=== PATIENT | male | born 1965 | race Caucasian/White ===

== ENCOUNTER → 2019-06-27 07:50 | Outpatient (BNVA) | payer OTHER, SELFPAY | PROVIDERS: Family Provider Internal Medicine; PCP Internal Medicine; Visit Provider Urology | DX: C61 Malignant neoplasm of prostate (principal); N52.9 Male erectile dysfunction, unspecified | CPT/HCPCS: 84153 ==

== ENCOUNTER → 2019-11-07 13:39 | Outpatient (BNVA) | payer OTHER, SELFPAY | PROVIDERS: Family Provider Internal Medicine; PCP Internal Medicine; Visit Provider Dermatology | DX: D48.9 Neoplasm of uncertain behavior, unspecified (principal); L82.1 Other seborrheic keratosis; D18.01 Hemangioma of skin and subcutaneous tissue | CPT/HCPCS: 11104; 88305; 88312; 99203 ==

== ENCOUNTER → 2019-11-10 10:42 | Outpatient (BNVA) | payer OTHER, SELFPAY | PROVIDERS: Family Provider Internal Medicine; PCP Internal Medicine; Visit Provider Dermatology | DX: D48.9 Neoplasm of uncertain behavior, unspecified (principal) | CPT/HCPCS: 88305 ==

== ENCOUNTER → 2019-11-21 13:55 | Outpatient (BNVA) | payer OTHER, SELFPAY | PROVIDERS: Family Provider Internal Medicine; PCP Internal Medicine; Visit Provider Dermatology | DX: Z48.02 Encounter for removal of sutures (principal); Z79.2 Long term (current) use of antibiotics | CPT/HCPCS: 99213 ==

== ENCOUNTER → 2019-11-24 08:19 | Outpatient (BNVA) | payer OTHER, SELFPAY | PROVIDERS: Family Provider Internal Medicine; PCP Internal Medicine; Visit Provider Dermatology | DX: L72.3 Sebaceous cyst (principal); D48.9 Neoplasm of uncertain behavior, unspecified | CPT/HCPCS: 11402; 12032; 88304; 88305 ==

== ENCOUNTER → 2019-12-08 08:58 | Outpatient (BNVA) | payer OTHER, SELFPAY | PROVIDERS: Family Provider Internal Medicine; PCP Internal Medicine; Visit Provider Dermatology | DX: Z48.02 Encounter for removal of sutures (principal) | CPT/HCPCS: 99203; 99212 ==

== ENCOUNTER → 2019-12-28 07:51 | Outpatient (BNVA) | payer OTHER, SELFPAY | PROVIDERS: Family Provider Internal Medicine; PCP Internal Medicine; Visit Provider Urology | DX: C61 Malignant neoplasm of prostate (principal); R79.89 Other specified abnormal findings of blood chemistry | CPT/HCPCS: 81001; 84153 ==

== ENCOUNTER → 2020-01-02 11:23 | Outpatient (BNVA) | payer OTHER, SELFPAY | PROVIDERS: Family Provider Internal Medicine; PCP Internal Medicine; Visit Provider Specialist | DX: Z96.651 Presence of right artificial knee joint (principal) | CPT/HCPCS: 73560; 73565 ==

== ENCOUNTER → 2020-01-04 10:42 | Outpatient (BNVA) | payer OTHER, SELFPAY | PROVIDERS: Family Provider Internal Medicine; PCP Internal Medicine; Visit Provider Nurse Practitioner Family | DX: Z11.59 Encounter for screening for other viral diseases (principal); J06.9 Acute upper respiratory infection, unspecified | CPT/HCPCS: 87635 ==

== ENCOUNTER → 2020-06-26 08:08 | Outpatient (BNVA) | payer OTHER, SELFPAY | PROVIDERS: Family Provider Internal Medicine; PCP Internal Medicine; Visit Provider Urology | DX: C61 Malignant neoplasm of prostate (principal); N52.1 Erectile dysfunction due to diseases classified elsewhere | CPT/HCPCS: 81003; 84153; 84403 ==

== ENCOUNTER 2020-07-12 12:43 | Outpatient (CLI) | payer OTHER, SELFPAY ==
--- NOTE | 2020-07-12 12:45 | USCV_ITS ---
Pancho Melendez Age: 55 Gender: M : 1965 Exam Date: 07/12/2020 13:29 Ordering Phys: Yonaatn Hernandes MD ([email or web address]) Technologist: Guera Hart [place] [facility] [place]: HISTORY: Lower extremity pain. PROCEDURES: Bilateral duplex Venous Insufficiency study of the Deep and Superficial systems was carried out according to normal protocol with the patient in supine positon for deep system and dependent position for the superficial system. FINDINGS: All deep veins demonstrated compressibility without evidence of intraluminal thrombus or increased echogenicity. Spectral analysis of Doppler signals demonstrates normal response to compression maneuvers indicating patency without obstruction. Reflux determinations were made with the patient in the dependent position, the weight being on the contralateral leg. Vein measurements and reflux times are listed below were applicable. THE PATIENT HAS SIGNIFICANT REFLUX ON BOTH SIDES WORSE ON LT . PLEASE HAVE DR HERNANDES REVIEW THE EXAM WITH GUERA HART THIS PROCEEDURE WILL BE COMPLICATED BY VERY SUPERFICAL VEINS. Significant venous reflux was noted at the left saphenofemoral junction CONCLUSIONS 1. Significant venous reflux of greater than 500 ms were noted at the left saphenofemoral junction and the entire greater saphenous vein segments except the mid greater saphenous vein segment. The proximal and mid greater saphenous vein segments were found to be greater than 1 cm deep from the surface. The rest of the venous segments were found to be less than 1 cm from the surface. The venous segments were ranging anywhere from .41 to 0.98 cm in diameter. 2. Significant venous reflux of greater than 500 ms was noted at the below-knee greater saphenous vein segment on the right side. The venous segment was 0. 3 9 cm in diameter at a depth of less than 1 cm from the surface. 3. No deep vein thrombosis are noted. 4. No deep venous reflux on either side. Dr Sarthak Calderon MD [facility] (Electronically Signed) Final Date: 13 July 2020 19:17 S
== END 2020-07-12 12:44 | disposition home or self-care (01) ==
LOC: US 12:47
PROVIDERS: PCP Internal Medicine; Visit Provider Internal Medicine Cardiovascular Disease
DX: I87.2 Venous insufficiency (chronic) (peripheral) (principal); M79.604 Pain in right leg; M79.605 Pain in left leg
CPT/HCPCS: 93970

== ENCOUNTER → 2020-12-27 08:15 | Outpatient (BNVA) | payer OTHER, SELFPAY | PROVIDERS: PCP Internal Medicine; Visit Provider Urology | DX: N52.1 Erectile dysfunction due to diseases classified elsewhere (principal); C61 Malignant neoplasm of prostate; Z12.5 Encounter for screening for malignant neoplasm of prostate | CPT/HCPCS: 81003; 84403; G0103 ==

== ENCOUNTER → 2021-01-02 09:28 | Outpatient (BNVA) | payer OTHER, SELFPAY | PROVIDERS: PCP Internal Medicine; Visit Provider Specialist | DX: Z96.651 Presence of right artificial knee joint (principal); M25.561 Pain in right knee | CPT/HCPCS: 73560; 73565 ==

== ENCOUNTER → 2021-04-22 12:05 | Outpatient (BNVA) | payer OTHER, SELFPAY | PROVIDERS: PCP Internal Medicine; Visit Provider Family Medicine | DX: Z20.828 Contact with and (suspected) exposure to other viral communicable diseases (principal) | CPT/HCPCS: 87426; 87635 ==

== ENCOUNTER → 2021-06-27 08:24 | Outpatient (BNVA) | payer OTHER, SELFPAY | PROVIDERS: PCP Internal Medicine; Visit Provider Urology | DX: C61 Malignant neoplasm of prostate (principal); R79.89 Other specified abnormal findings of blood chemistry; N52.1 Erectile dysfunction due to diseases classified elsewhere | CPT/HCPCS: 81003; 84153; 84403 ==

== ENCOUNTER 2021-10-17 08:00 | Outpatient (CLI) | payer OTHER, SELFPAY | END 2021-10-17 08:01 | disposition home or self-care (01) | PROVIDERS: PCP Internal Medicine; Visit Provider Urology | DX: C61 Malignant neoplasm of prostate (principal); R79.89 Other specified abnormal findings of blood chemistry | CPT/HCPCS: 84153; 84403 ==

== ENCOUNTER → 2021-10-18 07:59 | Outpatient (BNVA) | payer OTHER, SELFPAY | PROVIDERS: PCP Internal Medicine; Visit Provider Urology | DX: C61 Malignant neoplasm of prostate (principal); N52.1 Erectile dysfunction due to diseases classified elsewhere; R79.89 Other specified abnormal findings of blood chemistry | CPT/HCPCS: 81003 ==

== ENCOUNTER 2022-01-23 07:04 | Inpatient (IN) | payer BC, SELFPAY ==
[2022-01-23] VITALS (8 sets, daily range): BP systolic 97–158; BP diastolic 53–91; PULSE 90–122; RESP 14–20; TEMP 36.5–38.9; O2SAT 95–98; BMI 36.8
--- NOTE | 2022-01-23 07:09 | ECG_ITS ---
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 Measurements Intervals [place] Rate: 100 P: 51 [place]: 128 QRS: 5 QRSD: 102 T: 92 QT: 332 QTc: 428 Interpretive Statements SINUS TACHYCARDIA NONSPECIFIC T-WAVE ABNORMALITY Compared to ECG 12/18/2018 04:54:54 Sinus rhythm no longer present T-wave abnormality still present Electronically Signed On 01-23-2022 12:52:14 CDT by Alyson Hines M.D. [id number]
--- NOTE | 2022-01-23 07:09 | XR_ITS ---
WS: [id number] XR chest 1V portable [id number] REASON FOR EXAM: dyspnea/cough FINDINGS: Chest is unchanged compared to 11/19/2018. Mild tortuosity the thoracic aorta normal heart size. Calcified granulomatous disease in both hemithoraces. No acute pulmonary parenchymal or pleural abnormality. Moderate degenerative spondylosis in the mid and lower thoracic spine. XR/XR chest 1V portable [id number] IMPRESSION: No acute chest abnormality.
[2022-01-23 07:38] LABS: Basophils # 0.1 10^3/uL (0.0-0.1); Basophils % 0.6 %; Eosinophils # 0.1 10^3/uL (0.0-0.8); Eosinophils % 0.5 %; Hematocrit 45.4 % (42.0-52.0); Hemoglobin 15.9 g/dL (11.7-16.6); Lymphocytes # 0.6 10^3/uL (0.8-4.8); Lymphocytes % 4.2 %; Mean Corpuscular Hemoglobin 33.8 pg (28.0-34.0); Mean Corpuscular Volume 96.4 fl (80-94); Mean Platelet Volume 9.7 fL (7.4-10.4); Monocytes # 1.1 10^3/uL (0.2-0.9); Monocytes % 7.6 %; Neutrophils # 12.87 10^3/uL (1.8-7.7); Neutrophils % 86.7 %; Nucleated Red Blood Cells % 0 %; Platelet Count 183 10^3/cmm (130-400); Red Blood Count 4.71 10^6/uL (4.1-5.3); Red Cell Distribution Width 12.5 % (12.1-15.1); White Blood Count 14.9 10^3/uL (4.0-10.0)
[2022-01-23 07:52] LABS: Alanine Aminotransferase 26 U/L (0-41); Albumin Level 4.3 g/dL (3.5-5.2); Alkaline Phosphatase 76 U/L (40-130); Anion Gap 19.3 (5-19); Aspartate Amino Transferase 22 U/L (0-40); Blood Urea Nitrogen 23 mg/dL (6-20); Calcium 9.5 mg/dL (8.5-10.5); Carbon Dioxide 25 mmol/L (22-29); Chloride 94 mmol/L (98-107); Globulin 2.5 g/dL (1.3-4.6); Glucose 352 mg/dL (65-115); Osmolality Calculated 296 mOsm/kg (285-295); Potassium 4.3 mmol/L (3.5-5.1); Sodium 134 mmol/L (136-145); Total Bilirubin 2.6 mg/dL (0.15-1.2); Total Protein 6.8 g/dL (6.6-8.7)
--- NOTE | 2022-01-23 07:58 | ED_ITS ---
HPI - Fever General: Chief Complaint: Fever Stated Complaint: Fever Chills Time Seen by Provider: 01/23/22 07:06 Source: patient Mode of arrival: ambulatory History of Present Illness: 56-year-old male presents to the emergency room complaining of fever sweats chills generally not feeling well. Symptoms began overnight. 2 days ago he had a prostate biopsy because of a nodule there evaluating for possible cancer. He denies any hematuria denies any dysuria urgency or frequency just generally has not felt well has had some low-grade fever subjectively at home. He denies cough or shortness of breath no significant abdominal pain or chest pain. MD elicited complaint: fever and weakness Onset (ago): day(s) Exacerbating factors: nothing Relieving factors: nothing Associated symptoms: Reports chills, dysuria and myalgias; Deny abdominal pain, flank pain, chest pain, confusion, cough, diarrhea, extremity pain, headache(s), nasal congestion, nausea, night sweats, rash, rhinorrhea, short of breath, sinus pain, stiffness, sore throat, vomiting or weight loss Treatments prior to arrival fever: acetaminophen and ibuprofen Review of Systems Const: Reports: fever(s), chills and malaise; Denies: night sweats ENMT: Denies: throat pain, nasal congestion or sinus pain Card: Denies: chest pain Resp: Denies: dyspnea, productive cough or non-productive cough GI: Denies: abdominal pain, nausea, vomiting or diarrhea : Reports: difficulty urinating, dysuria and urinary hesitancy; Denies: flank pain, urinary frequency or urinary urgency Musc: Reports: back pain; Denies: neck pain or extremity pain Skin/Breast: Denies: rash or pruritus Neuro: Denies: headache(s) or confusion PFSH ED PFSH: Medical History CAD (coronary artery disease) Depression Essential (primary) hypertension Hyperlipidemia, unspecified Hypertension Hypogonadism Hypothyroidism Male erectile dysfunction, unspecified Pilonidal cyst Prostate cancer Rotator cuff arthropathy Type 2 diabetes mellitus Varicose 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 Surgical History H/O heart artery stent H/O prostate biopsy History of total right knee replacement Knee joint replacement by other means S/P nasal surgery Family History Mother , at age 73 Emphysema lung COPD (chronic obstructive pulmonary disease) Father , at age 59 Congestive heart failure Diabetes Social History Smoking and tobacco status: never smoked Alcohol intake: current Alcohol intake frequency: holidays/special occasions only Adopted: No Caregiver/support person: No Lives independently: No Household members: spouse Marital status: Current occupational status: employed History of recent travel: Yes Current gender identity: Male Physical Exam Const: GENERAL APPEARANCE: cooperative and comfortable ORIENTATION/CONSCIOUSNESS: Yes awake, Yes oriented to person, Yes oriented to place and Yes oriented to time HENMT: COMMON NORMALS: normocephalic, atraumatic and hearing grossly normal bilaterally HEAD & SCALP: normocephalic and atraumatic Resp: COMMON NORMALS: normal respiratory effort, No retractions, No use of accessory muscles and clear to auscultation bilaterally AUSCULTATION: clear to auscultation bilaterally Cardio: COMMON NORMALS: regular rate, regular rhythm and No murmurs present (Cardio) RATE: regular rate RHYTHM: regular rhythm GI: COMMON NORMALS: Soft to palpation and No hepatosplenomegaly present AU SCULTATION: Yes normoactive bowel sounds PALPATION: Yes Soft to palpation, No Tenderness to palpation present (GI), No Guarding due to palpation present (GI) and Yes No hepatosplenomegaly present Extremity: COMMON NORMALS: normal to inspection, capillary refill normal, no clubbing, cyanosis or edema, no calf tenderness and no pedal edema Neuro: SENSORIUM/ORIENTATION: Yes oriented to person, Yes oriented to place and Yes oriented to time Skin: COMMON NORMALS: no rashes or lesions noted GENERAL SKIN EXAM: no rashes or lesions noted Course Vital Signs: Vital signs: Vital Signs Temperature 97.3 F L 01/27/22 12:49 Pulse Rate 79 01/27/22 12:49 Respiratory Rate 20 H 01/27/22 12:49 Blood Pressure 126/80 01/27/22 12:49 Pulse Oximetry 93 01/27/22 12:49 Oxygen Delivery Me thod 01/27/22 11:09 Oxygen Flow Rate 3 01/24/22 20:00 MDM - Fever Medical Decision Making Febrile acutely illWhite count of 15,000 with left shift. Discussed with hospitalist and with urology blood cultures done initiate antibiotics. Medical Records I reviewed the patient's medical records. Lab Data I reviewed the patient's lab results. : 01/27/22 04:24 01/27/22 04:24 Radiology Impressions Chest X-Ray 01/23/22 07:09 IMPRESSION: No acute chest abnormality. Abdomen/Pelvis CT 01/23/22 08:06 IMPRESSION: 1. Mild prostate enlargement with heterogeneous enhancement and slight induration about the seminal vesicles. Some this may be due to recent biopsy. Recommend correlation for prostatitis. 2. No large hematoma or free fluid in the pelvis. 3. No obstructing renal or ureteral calculi. 4. No other acute findings. Laboratory Results WBC 9.9 10^3/uL (4.0-10.0) 01/24/22 04:36 RBC 4.13 10^6/uL (4.1-5.3) 01/24/22 04:36 Hgb 13.9 g/dL (11.7-16.6) 01/24/22 04:36 Hct 40.2 % (42.0-52.0) L 01/24/22 04:36 MCV 97.3 fl (80-94) H 01/24/22 04:36 MCH 33.7 pg (28.0-34.0) 01/24/22 04:36 MCHC 34.6 g/dL (30.0-36.0) 01/24/22 04:36 RDW 12.7 % (12.1-15.1) 01/24/22 04:36 Plt Count 129 10^3/cmm (130-400) L 01/24/22 04:36 MPV 9.6 fL (7.4-10.4) 01/24/22 04:36 Neut % (Auto) 83.6 % 01/24/22 04:36 Lymph % (Auto) 7.1 % 01/24/22 04:36 Gates % (Auto) 7.5 % 01/24/22 04:36 Eos % (Auto) 0.3 % 01/24/22 04:36 Baso % (Auto) 0.6 % 01/24/22 04:36 Neut # (Auto) 8.26 10^3/uL (1.8-7.7) H 01/24/22 04:36 Lymph # (Auto) 0.7 10^3/uL (0.8-4.8) L 01/24/22 04:36 Gates # (Auto) 0.7 10^3/uL (0.2-0.9) 01/24/22 04:36 Eos # (Auto) 0.0 10^3/uL (0.0-0.8) 01/24/22 04:36 Baso # (Auto) 0.1 10^3/uL (0.0-0.1) 01/24/22 04:36 Nucleated RBC % (auto) 0 % 01/24/22 04:36 Nucleated RBCs # 0.0 /100WBC 01/24/22 04:36 Sodium 134 mmol/L (136-145) L 01/24/22 04:36 Potassium 3.9 mmol/L (3.5-5.1) 01/24/22 04:36 Chloride 97 mmol/L (98-107) L 01/24/22 04:36 Carbon Dioxide 26 mmol/L (22-29) 01/24/22 04:36 Anion Gap 14.9 (5-19) 01/24/22 04:36 BUN 16 mg/dL (6-20) 01/24/22 04:36 Creatinine 0.9 mg/dL (0.7-1.2) 01/24/22 04:36 GFR Calculation 87.0 mL/min (90-130) L 01/24/22 04:36 Glucose 144 mg/dL (65-115) H 01/24/22 04:36 POC Glucose 139 mg/dL (70-110) H 01/24/22 06:03 Calculated Osmolality 282 mOsm/kg (285-295) L 01/24/22 04:36 Lactic Acid 3.4 mmol/L (0.5-2.2) H 01/23/22 07:20 Lactic Acid (Sepsis) 1.7 mmol/L (0.5-2.2) 01/23/22 10:41 Calcium 8.5 mg/dL (8.5-10.5) 01/24/22 04:36 Total Bilirubin 1.7 mg/dL (0.15-1.2) H 01/24/22 04:36 AST 28 U/L (0-40) 01/24/22 04:36 ALT 21 U/L (0-41) 01/24/22 04:36 Alkaline Phosphatase 37 U/L (40-130) L 01/24/22 04:36 Troponin T Gen 5 ng/L 25 ng/L (0-15) H 01/23/22 12:33 Total Protein 5.8 g/dL (6.6-8.7) L 01/24/22 04:36 Albumin 3.4 g/dL (3.5-5.2) L 01/24/22 04:36 Globulin 2.4 g/dL (1.3-4.6) 01/24/22 04:36 Urine Color Yellow (Yellow) 01/23/22 09:20 Urine Appearance Clear (CLEAR) 01/23/22 09:20 Urine pH 5 (5-7) 01/23/22 09:20 Ur Specific [place] 1.005 (1.005-1.030) 01/23/22 09:20 Urine Protein Trace (Negative) 01/23/22 09:20 Urine Glucose (UA) 2+ (Normal) H 01/23/22 09:20 Urine Ketones Negative (Negative) 01/23/22 09:20 Urine Blood 3+ (Negative) H 01/23/22 09:20 Urine Nitrate Negative (Negative) 01/23/22 09:20 Urine Bilirubin Neg (Negative) 01/23/22 09:20 Urine Urobilinogen Neg mg/dL (Negative) 01/23/22 09:20 Ur Leukocyte Esterase Negative (Negative) 01/23/22 09:20 Urine RBC 25-40 /hpf (0-2) H 01/23/22 09:20 Urine WBC None /hpf (0-5) 01/23/22 09:20 Ur Squamous Epith Cells 0-4 /hpf (0-5) H 01/23/22 09:20 Amorphous Sediment Not Reportable 01/23/22 09:20 Urine Bacteria None /hpf (NONE) 01/23/22 09:20 Urine Mucus 1+ /hpf 01/23/22 09:20 Tobramycin Peak 2.6 ug/mL (6-10) L 01/23/22 22:15 Coronavirus 229E (PCR) Not detected (NOT DETECT) 01/23/22 11:50 SARS-CoV-2 (PCR) Not detected (NOT DETECT) 01/23/22 11:50 Discharge Plan Discharge Patient Disposition: Admitted As Inpatient Admit Provider: Rashid Neff Clinical Impression: Acute prostatitis, CAD (coronary artery disease), Type 2 diabetes mellitus, Total bilirubin, elevated Condition: Stable Discharge Diet: Cardiac and Diabetic Discharge Activity: Increase activity as tolerated Coding Level of Care Code ED Health And Wellness Coordinator for Monet Jimenez
--- NOTE | 2022-01-23 08:06 | CT_ITS ---
WS: [id number] CT ABDOMEN PELVIS TECHNIQUE: Contrast-enhanced CT of the abdomen and pelvis with coronal and sagittal reformatted image s. CLINICAL INFORMATION: abd pain COMPARISON: None. DLP: 1228.[address] scans at [facility] use at least one of these dose optimization techniques: automated e xposure control; mA and/or kV adjustment per patient size (includes targeted exams where dose is matc hed to clinical indication); or iterative reconstruction. FINDINGS: Enlarged heterogeneous prostate. Heterogeneous prostate enhancement. Prostate measures 4.8 x 3.8 cm. History of recent prostate biopsy. No evidence of large hematoma or free fluid in the pelvis. Slight induration about the seminal vesicles. Normal sigmoid colon. No evidence of high-grade small or large bowel obstruction. Mild hepatomegaly. Diffuse fatty infiltration liver. Normal gallbladder. Tiny esophageal hiatal herni a. Normal spleen. A few tiny noncalcified nodules in the RIGHT middle lobe and lung bases measuring 3 to 4 mm. Adrenal glands are normal. Normal renal parenchymal enhancement. RIGHT renal cyst. No obstr ucting renal or ureteral calculi. Nonobstructing calyceal calculi bilaterally. No hydronephrosis. Fatty atrophy of the pancreas. Normal caliber abdominal aorta. Celiac and SMA are patent. Fat-contain ing umbilical hernia. Slightly anterolisthesis L4 on L5. Disc space narrowing worse L5-S1. CT/CT abdomen pelvis w con* [id number] IMPRESSION: 1. Mild prostate enlargement with heterogeneous enhancement and slight indurat ion about the seminal vesicles. Some this may be due to recent biopsy. Recommen d correlation for prostatitis. 2. No large hematoma or free fluid in the pelvis. 3. No obstructing renal or ureteral calculi. 4. No other acute findings.
[2022-01-23 08:31] LABS: Lactic Sepsis W/Reflex 3.4 mmol/L (0.5-2.2)
[2022-01-23] MEDS: iohexol 350 mg/mL 100 mL Btl IV (08:32)
[2022-01-23 09:51] LABS: Blood Urine 3+ (Negative); Glucose Urine UA 2+ (Normal); Ketones Urine Negative (Negative); Nitrate Urine Negative (Negative); Protein Urine Trace (Negative); Specific Gravity, Urine 1.005 (1.005-1.030); Urine Appearance Clear (CLEAR); Urine Color Yellow (Yellow); pH Urine 5 (5-7)
[2022-01-23 09:52] LABS: Add Urine Microscopic? YES; Bilirubin Urine Neg (Negative); Leukocyte Esterase Urine Negative (Negative); Urobilinogen Urine Neg (Negative)
[2022-01-23 09:58] LABS: Reflex Lactate Order REFLEX LACTIC ORDERD
[2022-01-23 09:59] LABS: Mucus Urine 1+ /hpf; RBC Urine 25-40 /hpf (0-2); Squamous Epithelial Cell Urine 0-4 /hpf (0-5)
[2022-01-23 11:04] LABS: Lactic Acid level (Lactate) 1.7 mmol/L (0.5-2.2)
--- NOTE | 2022-01-23 11:22 | PM.HP ---
Providers/Chief Complaint Admitting Physician: Rashid Neff MD Primary Care Provider: Linda Prakash MD Chief Complaint: Fever Chills History of Present Illness Pancho Melendez is a 56 year old male who presents with complaints of chills, low temperature, diffuse sweating, and some shortness of breath starting around 2 AM this morning. He reports he feels little bit better now after fluids. He recently had a prostate biopsy, on Thursday. This was done in [place], and he received some preoperative antibiotics by mouth as well as some IV. He reports since the surgery he has had some difficulty controlling his urine, but no particular pain. He has had no nausea, vomiting or diarrhea. He has had no ill contacts. He denies any chest discomfort. Shortness of breath he had this morning associated with his chills has now dissipated. Review of Systems General: Reports: 10 or more systems reviewed and unremarkable except in HPI and below Const: Reports: chills, fatigue, malaise and diaphoresis; Denies: fever(s) ENMT: Denies: throat pain Card: Denies: chest pain or palpitations Resp: Reports: dyspnea GI: Denies: abdominal pain, nausea or vomiting : Reports: urinary frequency, urinary dribbling and urinary incontinence Musc: Denies: neck pain or back pain Skin/Breast: Denies: rash or pruritus Neuro: Denies: headache(s) Psych: Denies: anxiety or depression Endo: Denies: polyuria Oswaldo/Lymph: Denies: easy bruising All/Imm: Denies: urticaria Medications/Allergies Home Medications Medication Instructions Recorded Confirmed Last Taken Type duloxetine 30 mg capsule,delayed 30 mg PO DAILY 04/26/19 12/09/21 Unknown History release (Cymbalta) tramadol 50 mg tablet 50 mg PO Q6H PRN 04/26/19 12/09/21 Unknown History trazodone 100 mg tablet 100 mg PO DAILY 04/26/19 12/09/21 Unknown History aspirin 81 mg chewable tablet 81 mg PO DAILY 06/27/19 12/09/21 Unknown History levothyroxine 50 mcg capsule 50 mcg PO DAILY 06/27/19 12/09/21 Unknown History atorvastatin 20 mg tablet 20 mg PO DAILY 12/27/20 12/09/21 Unknown History cholecalciferol (vitamin D3) 250 250 mcg PO DAILY 12/27/20 12/09/21 Unknown History mcg (10,000 unit) capsule compounded tri mix PO for ED 12/27/20 12/09/21 Unknown History diclofenac potassium 50 mg tablet 50 mg PO DAILY 12/27/20 12/09/21 Unknown History semaglutide 0.25 mg or 0.5 mg (2 mg SUBCUT .0.5 units PRN weekly 06/27/21 12/09/21 Unknown History mg/1.5 mL) subcutaneous pen injector (Ozempic) clopidogrel 75 mg tablet (Plavix) 75 mg PO DAILY #90 tabs 07/02/21 12/09/21 Unknown Rx carvedilol 12.5 mg tablet 12.5 mg PO BID #180 tabs 08/05/21 12/09/21 Unknown Rx testosterone cypionate 200 mg/mL 200 mg IM .EVERY OTHER WEEK #10 mL 08/08/21 12/09/21 Unknown Rx intramuscular oil hydrochlorothiazide 25 mg tablet 12.5 mg PO BID #90 tabs 08/13/21 12/09/21 Unknown Rx losartan 100 mg tablet 150 mg PO DIRECTED #135 tabs 11/19/21 12/09/21 Unknown Rx Allergies Allergy/AdvReac Type Severity Reaction Status Date / Time amoxicillin Allergy UNKNOWN Verified 12/09/21 15:12 penicillin V [From Pen-Vee K] Allergy UNKNOWN Verified 12/09/21 15:12 PFSH Acute PFSH: Medical History (Updated 01/23/22 @ 12:19 by Rashid Neff MD) CAD (coronary artery disease) Depression Essential (primary) hypertension Hyperlipidemia, unspecified Hypertension Hypogonadism Hypothyroidism Male erectile dysfunction, unspecified Pilonidal cyst Prostate cancer Rotator cuff arthropathy Type 2 diabetes mellitus Varicose 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 Surgical History H/O heart artery stent H/O prostate biopsy History of total right knee replacement Knee joint replacement by other means S/P nasal surgery Family History Mother , at age 73 Emphysema lung COPD (chronic obstructive pulmonary disease) Father , at age 59 Congestive heart failure Diabetes Social History Smoking and tobacco status: never smoked Alcohol intake: current Alcohol intake frequency: holidays/special occasions only Adopted: No Caregiver/support person: No Lives independently: No Household members: spouse Marital status: Current occupational status: employed History of recent travel: Yes Current gender identity: Male Vitals/I&O/Wt Last Vital Signs Temp 97.7 F 01/23/22 07:10 Pulse 90 01/23/22 09:38 Resp 14 01/23/22 09:38 BP 125/75 01/23/22 09:38 Pulse Ox 95 01/23/22 09:38 O2 Del Method 01/23/22 09:38 Weight last 48 hrs Weight 123.377 kg Physical Exam Narrative: General exam, some shaking chills. Otherwise no distress. Denies any shortness of breath or chest discomfort. Heart rate now 90, after fluids and saturation is 95% on room air HEENT: Atraumatic and normocephalic. Pupils equally round. Oropharynx clear. Neck is supple no lymphadenopathy or thyromegaly Cardiovascular regular rate and rhythm without murmur, no S3 or S4 Lungs clear no wheezing or crackles Abdomen is soft, positive bowel sounds. No obvious tenderness exam is deferred Extremities no cyanosis clubbing or edema, cap refill brisk. Skin no rash Neuro no obvious focal deficits. Data : 01/23/22 07:20 01/23/22 07:20 Other Labs: Blood cultures were drawn EKG demonstrates sinus tachycardia initially with a heart rate of 100, normal axis, no acute changes. LFTs normal with exception of total bilirubin of 2.6. Lactic acid 3.4 Calcium 9.5 Urinalysis with 25-40 reds, 0-[address] demonstrates question prostatitis. No hematoma or free fluid, or urinary calculi. No other acute findings. Chest x-ray no infiltrate Micro: Microbiology 01/23/22 07:26 Blood Culture - Preliminary Blood SPECIMEN COLLECTED 01/23/22 07:20 Blood Culture - Preliminary Blood SPECIMEN COLLECTED A&P Assessment and plan (1) Acute prostatitis: Patient presents with concerns of acute prostatitis on CT scan, history of chills, diaphoresis, elevated white blood cell count, borderline low blood pressure on admission that has resolved with fluids. Discussed briefly with urology. For now, observation Blood cultures, urine cultures Initiate tobramycin. This was chosen as he had Levaquin preoperatively 2 days ago prior to biopsy. Visited briefly with urology regarding this. (2) Leukocytosis: Secondary to above. Does not qualify for sepsis currently. No evidence of endorgan dysfunction. Certainly at risk. Lactic acid slightly high. (3) Elevated bilirubin: Likely secondary to infection. Recheck tomorrow (4) Type 2 diabetes mellitus: Moderate sliding scale insulin (5) CAD (coronary artery disease): Continue home medications Plan Diaphoresis, dyspnea noted this morning. Check troponin, EKG for follow-up as initial troponin I had done on blood in lab was elevated. Initial EKG without any definitive ischemic changes. Will follow-up appropriately. 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
[2022-01-23 11:33] LABS: Troponin T (5th) Once 34 ng/L (0-15)
[2022-01-23] MEDS: levofloxacin-dextrose 5 % 750 MG/150 ML PREMIX 100 MG IV (11:51)
--- NOTE | 2022-01-23 12:21 | ECG_ITS ---
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 Measurements Intervals [place] Rate: 118 P: 33 HI: 117 QRS: -14 QRSD: 102 T: 74 QT: 302 QTc: 424 Interpretive Statements SINUS TACHYCARDIA WITH SHORT HI INTERVAL NONSPECIFIC T-WAVE ABNORMALITY Compared to ECG 01/23/2022 08:08:31 Short HI interval now present T-wave abnormality still present Electronically Signed On 01-23-2022 17:08:07 CDT by Alyson Hines M.D. [id number]
[2022-01-23 13:06] LABS: Troponin T (5th) Once 25 ng/L (0-15)
[2022-01-23] MEDS: ondansetron 2 mg/ML SDV 2 mL 4 MG IVP (13:32)
[2022-01-23 14:36] LABS: Add Urine Culture? No
[2022-01-23] MEDS: sodium chloride 0.9% 1,000 ML 100 ML IV (15:09)
[2022-01-23] MEDS: enoxaparin 40 mg/0.4 mL Syringe SUBCUT (15:11)
[2022-01-23] MEDS: acetaminophen 325 mg Tablet 650 MG PO ×3 (15:41→23:55)
[2022-01-23 16:49] LABS: Glucose Point of Care 160 mg/dL (70-110)
[2022-01-23] MEDS: vancomycin 1,500 MG/300 ML PIGGYBACK 200 MG IV (16:55)
[2022-01-23] MEDS: insulin lispro 100 unit/1 mL SUBCUT ×2 (19:07→20:35)
[2022-01-23 20:03] LABS: Adenovirus Not Detected (NOT DETECT); Chlamydia Pneumoniae Not Detected (NOT DETECT); Coronavirus 229E,HKU1,NL63,OC4 Not Detected (NOT DETECT); Human Metapneumovirus Not Detected (NOT DETECT); Human Rhinovirus/Enterovirus Not Detected (NOT DETECT); Influenza A Not Detected (NOT DETECT); Influenza A H1 Not Detected (NOT DETECT); Influenza A H1-2009 Not Detected (NOT DETECT); Influenza A H3 Not Detected (NOT DETECT); Influenza B Not Detected (NOT DETECT); Mycoplasma Pneumoniae Not Detected (NOT DETECT); Parainfluenza Virus Type 1 Not Detected (NOT DETECT); Parainfluenza Virus Type 2 Not Detected (NOT DETECT); Parainfluenza Virus Type 3 Not Detected (NOT DETECT); Parainfluenza Virus Type 4 Not Detected (NOT DETECT); Respiratory Syncytial Virus A Not Detected (NOT DETECT); Respiratory Syncytial Virus B Not Detected (NOT DETECT); SARS-COV-2 Not Detected (NOT DETECT)
[2022-01-23 20:24] LABS: Glucose Point of Care 193 mg/dL (70-110)
[2022-01-23] MEDS: atorvastatin 40 mg Tablet 20 MG PO (20:35)
[2022-01-23] MEDS: carvedilol 6.25 mg Tablet PO (20:36)
[2022-01-23 22:44] LABS: Tobramycin Peak 2.6 ug/mL (6-10)
[2022-01-24] VITALS (10 sets, daily range): BP systolic 97–164; BP diastolic 57–103; PULSE 91–208; RESP 14–25; TEMP 36.7–39.5; O2SAT 86–95
[2022-01-24] MEDS: sodium chloride 0.9% 1,000 ML 100 ML IV
[2022-01-24 00:27] LABS: Glucose Point of Care 151 mg/dL (70-110)
[2022-01-24] MEDS: vancomycin 1,500 MG/300 ML PIGGYBACK 200 MG IV ×2 (02:57→15:25)
[2022-01-24 04:59] LABS: Basophils # 0.1 10^3/uL (0.0-0.1); Basophils % 0.6 %; Eosinophils % 0.3 %; Hematocrit 40.2 % (42.0-52.0); Hemoglobin 13.9 g/dL (11.7-16.6); Lymphocytes # 0.7 10^3/uL (0.8-4.8); Lymphocytes % 7.1 %; Mean Corpuscular HGB Conc 34.6 g/dL (30.0-36.0); Mean Corpuscular Hemoglobin 33.7 pg (28.0-34.0); Mean Corpuscular Volume 97.3 fl (80-94); Mean Platelet Volume 9.6 fL (7.4-10.4); Monocytes # 0.7 10^3/uL (0.2-0.9); Monocytes % 7.5 %; Neutrophils # 8.26 10^3/uL (1.8-7.7); Neutrophils % 83.6 %; Nucleated Red Blood Cells % 0 %; Platelet Count 129 10^3/cmm (130-400); Red Blood Count 4.13 10^6/uL (4.1-5.3); Red Cell Distribution Width 12.7 % (12.1-15.1); White Blood Count 9.9 10^3/uL (4.0-10.0)
[2022-01-24 05:12] LABS: Alanine Aminotransferase 21 U/L (0-41); Albumin Level 3.4 g/dL (3.5-5.2); Alkaline Phosphatase 37 U/L (40-130); Anion Gap 14.9 (5-19); Aspartate Amino Transferase 28 U/L (0-40); Blood Urea Nitrogen 16 mg/dL (6-20); Calcium 8.5 mg/dL (8.5-10.5); Carbon Dioxide 26 mmol/L (22-29); Chloride 97 mmol/L (98-107); Globulin 2.4 g/dL (1.3-4.6); Glucose 144 mg/dL (65-115); Osmolality Calculated 282 mOsm/kg (285-295); Potassium 3.9 mmol/L (3.5-5.1); Sodium 134 mmol/L (136-145); Total Bilirubin 1.7 mg/dL (0.15-1.2); Total Protein 5.8 g/dL (6.6-8.7)
[2022-01-24 06:20] LABS: Glucose Point of Care 139 mg/dL (70-110)
--- NOTE | 2022-01-24 08:24 | PM.PN ---
Subjective Subjective: Had a difficult night, but feeling better this morning. Had to be put on a little bit of oxygen, and his CPAP. Temperature went up to 103 and he had significant chills. He feels much better this morning. Medications: Reviewed: Yes Vitals/I&O/Wt Last Vital Signs Temp 98.0 F 01/24/22 04:00 Pulse 100 01/24/22 08:00 Resp 18 01/24/22 04:00 BP 104/70 01/24/22 04:00 Pulse Ox 92 01/24/22 08:00 O2 Del Method 01/24/22 08:00 O2 Flow Rate 3 01/24/22 08:00 01/23/22 01/24/22 01/24/22 22:59 06:59 14:59 Intake Total 4506.31 / 4506.31 3185 / 7691.31 Balance 4506.31 / 4506.31 3185 / 7691.31 Weight last 48 hrs Weight 123.377 kg Physical Exam Narrative: General exam, no distress currently Neck is supple no lymphadenopathy or thyromegaly Cardiovascular regular rate and rhythm without murmur, no S3 or S4 Lungs clear no wheezing or crackles Abdomen is soft, positive bowel sounds. No obvious tenderness exam is deferred Extremities no cyanosis clubbing or edema, cap refill brisk. Skin no rash Data : 01/24/22 04:36 01/24/22 04:36 Micro: Microbiology 01/23/22 07:26 Blood Culture - Preliminary Blood NEGATIVE TO DATE 01/23/22 07:20 Blood Culture - Preliminary Blood NEGATIVE TO DATE A&P Assessment and plan (1) Acute prostatitis: Patient presents with concerns of acute prostatitis on CT scan, history of chills, diaphoresis, elevated white blood cell count, borderline low blood pressure on admission that has resolved with fluids. Discussed briefly with urology. Significant fever last night. Not appropriate for discharge. Changed to regular admission. Await blood and urine cultures Discontinue tobramycin. Initiate Fortaz, with vancomycin that he is already on awaiting cultures. Suspect he can be discharged on oral third-generation cephalosporin when he has appropriately recovered, perhaps tomorrow if blood cultures are negative and he continues to clinically improve, with no recurrence of fever (2) Leukocytosis: Secondary to above. Improved (3) Elevated bilirubin: Likely secondary to infection. Improving (4) Type 2 diabetes mellitus: Moderate sliding scale insulin (5) CAD (coronary artery disease): Continue home medications Plan Diaphoresis, dyspnea noted this morning. Troponin was slightly elevated, but no significant delta. Likely secondary to significant infection on presentation Multiple other medical problems as outlined in past medical history Full code Lovenox for DVT prophylaxis Attestations Medical Necessity Statement*: Needs continued hospitalization for IV antibiotics secondary to acute prostatitis with fever status postsurgical procedure 3 days ago Coding Level of Care Code Acute Automation Controls Specialist for [facility] Fwd Diagnoses Acute prostatitis N41.0 Leukocytosis D72.829 Elevated bilirubin R17 Type 2 diabetes mellitus E11.9 CAD (coronary artery disease) I25.10
[2022-01-24] MEDS: carvedilol 6.25 mg Tablet PO ×2 (08:41→22:03)
[2022-01-24] MEDS: levothyroxine 50 mcg Tablet PO (08:41)
[2022-01-24] MEDS: aspirin 81 mg Chew Tablet PO (08:41)
[2022-01-24] MEDS: clopidogrel 75 mg Tablet PO (08:41)
[2022-01-24] MEDS: duloxetine 30 mg Capsule PO (08:41)
[2022-01-24 08:59] LABS: Glucose Point of Care 169 mg/dL (70-110)
[2022-01-24 11:31] LABS: Glucose Point of Care 230 mg/dL (70-110)
[2022-01-24] MEDS: insulin lispro 100 unit/1 mL SUBCUT ×2 (11:52→22:03)
--- NOTE | 2022-01-24 13:07 | PC.CHAP ---
Pastoral Care Encounter/Spiritual Assessment Type of Contact [] Declined optical worker visit [] Patient/Family/Request visit [] Outpatient visit [] Follow-up visit [] Physician referral [] Code/Alert [] Routine visit [] Staff referral [] Actively dying [] Patient sleeping [] Family support [] [] Out of room [] Palliative care [] [] Receiving care in room [] Pre-surgical visit [] Trauma [] Long length of stay [] ICU visit [] Other: Relational/Emotional Strength [] Patient feels connected with others/family/visitors/staff [] Distress [] Loneliness/isolation [] Abandonment Spirituality of Patient [] Person of Silke [] Attends Scientologist of their Silke [] Believes in Prayer [] Reads Bible or Jainism materials [] There are Spiritual issues to be addressed Brace Maker Interventions [] Prayer [] Active listening [] Non-anxious presence [] Spiritual/emotional support [] Crisis/trauma care [] Spiritual counseling [] Bereavement support [] Provided bereavement packet [] Provided Bible/devotional materials [] Provided toy/stuffed animal, coloring book to patient or family member [] Provided Communion [] Anointing/[place] [] Salvation [] Completed spiritual assessment [] Other: Impact on Illness or Injury [] Angry [] Fearful [] Anxious [] Often cries [] Exhaustion [] Unable to work [] Unable to attend hoahaoism [] Unable to walk/stand [] Unable to read [] Unable to drive [] Unable to eat/drink [] Unable to sleep [] Unable to be with family [] Patient intubated [] Other: Summary Time spent with patient Pastoral Care Encounter/Spiritual Assessment Type of Contact [] Declined optical worker visit [] Patient/Family/Request visit [] Outpatient visit [] Follow-up visit [] Physician referral [] Code/Alert [x] Routine visit [] Staff referral [] Actively dying [x] Patient sleeping [] Family support [] [] Out of room [] Palliative care [] [] Receiving care in room [] Pre-surgical visit [] Trauma [] Long length of stay [] ICU visit [] Other: Relational/Emotional Strength [] Patient feels connected with others/family/visitors/staff [] Distress [] Loneliness/isolation [] Abandonment Spirituality of Patient [] Person of Silke [] Attends Scientologist of their Silke [] Believes in Prayer [] Reads Bible or Jainism materials [] There are Spiritual issues to be addressed Brace Maker Interventions [] Prayer [] Active listening [] Non-anxious presence [] Spiritual/emotional support [] Crisis/trauma care [] Spiritual counseling [] Bereavement support [] Provided bereavement packet [] Provided Bible/devotional materials [] Provided toy/stuffed animal, coloring book to patient or family member [] Provided Communion [] Anointing/[place] [] Salvation [] Completed spiritual assessment [] Other: Impact on Illness or Injury [] Angry [] Fearful [] Anxious [] Often cries [] Exhaustion [] Unable to work [] Unable to attend hoahaoism [] Unable to walk/stand [] Unable to read [] Unable to drive [] Unable to eat/drink [] Unable to sleep [] Unable to be with family [] Patient intubated [] Other: Summary Time spent with patient
[2022-01-24] MEDS: acetaminophen 325 mg Tablet 650 MG PO (15:24)
[2022-01-24] MEDS: enoxaparin 40 mg/0.4 mL Syringe SUBCUT (15:24)
[2022-01-24 17:23] LABS: Glucose Point of Care 145 mg/dL (70-110)
--- NOTE | 2022-01-24 21:54 | PC.NURSE ---
Lab staff notified charge nurse of gram stain of blood culture moderate amount of gram negative rods. Dr. Robledo notified at this time.
[2022-01-24] MEDS: atorvastatin 40 mg Tablet 20 MG PO (22:03)
[2022-01-24 22:04] LABS: Glucose Point of Care 146 mg/dL (70-110)
[2022-01-25] VITALS (9 sets, daily range): BP systolic 124–158; BP diastolic 81–93; PULSE 60–102; RESP 15–20; TEMP 36.7–37.7; O2SAT 90–98
[2022-01-25 03:16] LABS: Basophils # 0.1 10^3/uL (0.0-0.1); Basophils % 0.7 %; Eosinophils # 0.1 10^3/uL (0.0-0.8); Eosinophils % 0.8 %; Hematocrit 40.3 % (42.0-52.0); Hemoglobin 14.1 g/dL (11.7-16.6); Lymphocytes % 13.9 %; Mean Corpuscular Hemoglobin 33.7 pg (28.0-34.0); Mean Corpuscular Volume 96.4 fl (80-94); Mean Platelet Volume 9.5 fL (7.4-10.4); Monocytes # 0.7 10^3/uL (0.2-0.9); Monocytes % 9.9 %; Neutrophils # 5.55 10^3/uL (1.8-7.7); Neutrophils % 74.3 %; Nucleated Red Blood Cells % 0 %; Platelet Count 134 10^3/cmm (130-400); Red Blood Count 4.18 10^6/uL (4.1-5.3); Red Cell Distribution Width 12.6 % (12.1-15.1); White Blood Count 7.5 10^3/uL (4.0-10.0)
--- NOTE | 2022-01-25 03:18 | PC.NURSE ---
Vanc trough currently pending.
[2022-01-25 03:36] LABS: Vancomycin Trough 4.9 ug/mL (10-15)
[2022-01-25 03:37] LABS: Alanine Aminotransferase 66 U/L (0-41); Albumin Level 3.4 g/dL (3.5-5.2); Alkaline Phosphatase 46 U/L (40-130); Anion Gap 13.9 (5-19); Aspartate Amino Transferase 79 U/L (0-40); Blood Urea Nitrogen 13 mg/dL (6-20); Carbon Dioxide 28 mmol/L (22-29); Chloride 98 mmol/L (98-107); Globulin 2.2 g/dL (1.3-4.6); Glomerular Filtration Rate 99.6 mL/min (90-130); Glucose 145 mg/dL (65-115); Osmolality Calculated 285 mOsm/kg (285-295); Potassium 3.9 mmol/L (3.5-5.1); Sodium 136 mmol/L (136-145); Total Bilirubin 1.4 mg/dL (0.15-1.2); Total Protein 5.6 g/dL (6.6-8.7)
[2022-01-25] MEDS: vancomycin 1,500 MG/300 ML PIGGYBACK 200 MG IV ×3 (03:43→20:56)
[2022-01-25 06:35] LABS: Glucose Point of Care 147 mg/dL (70-110)
[2022-01-25] MEDS: carvedilol 6.25 mg Tablet PO ×2 (08:40→21:45)
[2022-01-25] MEDS: levothyroxine 50 mcg Tablet PO (08:40)
[2022-01-25] MEDS: insulin lispro 100 unit/1 mL SUBCUT ×4 (08:40→21:45)
[2022-01-25] MEDS: duloxetine 30 mg Capsule PO (08:40)
[2022-01-25] MEDS: aspirin 81 mg Chew Tablet PO (08:40)
[2022-01-25] MEDS: clopidogrel 75 mg Tablet PO (08:40)
[2022-01-25 11:00] LABS: Glucose Point of Care 208 mg/dL (70-110)
[2022-01-25 11:07] LABS: Add Urine Microscopic? YES; Bilirubin Urine Neg (Negative); Blood Urine 3+ (Negative); Glucose Urine UA 4+ (Normal); Ketones Urine Negative (Negative); Leukocyte Esterase Urine Negative (Negative); Nitrate Urine Negative (Negative); Protein Urine Trace (Negative); Specific Gravity, Urine 1.015 (1.005-1.030); Urine Appearance Hazy (CLEAR); Urine Color Yellow (Yellow); Urobilinogen Urine Neg (Negative); pH Urine 5 (5-7)
[2022-01-25 11:14] LABS: Add Urine Culture? No; RBC Urine 40-50 /hpf (0-2)
[2022-01-25 11:52] LABS: Iron 23 ug/dL (59-158); Percent Saturation 10.9 % (20-50); Total Iron Binding Capacity 210 mcg/dl; Unsaturated Iron Binding 187 ug/dL (112-347)
[2022-01-25 11:58] LABS: Procalcitonin 2.55 ng/mL (0-0.5)
--- NOTE | 2022-01-25 12:00 | P.PN_ITS ---
Subjective Subjective: Hospital course, labs appreciated. Patient states he is feeling a lot better today. States he is more active and wants to move around today. T-max in last 24 hours 100 Fahrenheit last night midnight. No leukocytosis. Today in the morning patient thinks his urine is a little more bloody than what it was yesterday. Asking if he can go home today. Medications: Reviewed: Yes Vitals/I&O/Wt Last Vital Signs Temp 98.1 F 01/25/22 11:30 Pulse 89 01/25/22 11:30 Resp 17 01/25/22 11:30 BP 130/81 01/25/22 11:30 Pulse Ox 93 01/25/22 11:30 O2 Del Method 01/25/22 11:30 O2 Flow Rate 3 01/24/22 20:00 01/24/22 01/25/22 01/25/22 22:59 06:59 14:59 Intake Total 350 / 990 1350 / 2340 360 / 360 Output Total 575 / 575 925 / 1500 Balance -225 / 415 425 / 840 360 / 360 Physical Exam Narrative: General exam, no distress currently Neck is supple no lymphadenopathy or thyromegaly Cardiovascular regular rate and rhythm without murmur, no S3 or S4 Lungs clear no wheezing or crackles Abdomen is soft, positive bowel sounds. No obvious tenderness exam is deferred Extremities no cyanosis clubbing or edema, cap refill brisk. Skin no rash Data : 01/25/22 02:16 01/25/22 02:16 Micro: Microbiology 01/23/22 12:15 Urine Culture - Final Urine,Clean Catch 01/23/22 07:20 Blood Culture - Preliminary Blood NEGATIVE TO DATE 01/23/22 07:26 Blood Culture - Preliminary Blood NEGATIVE TO DATE A&P Assessment and plan (1) Acute prostatitis: Prostatitis seen on CT scan. Post prostate biopsy. Follow-up blood cultures. So far negative. Going back for culture history 18 urine culture in past positive for pansensitive E. coli. Urine culture negative to date. Continue with current antibiotics for now. If blood cultures remain negative for next 24 hours will de-escalate further. Repeat UA. Check procalcitonin. (2) Leukocytosis: Resolved. (3) Elevated bilirubin: Likely secondary to infection. Improving (4) Type 2 diabetes mellitus: Moderate sliding scale insulin (5) CAD (coronary artery disease): Continue home medications Plan Multiple other medical problems as outlined in past medical history Regular diet. Full code Lovenox for DVT prophylaxis Attestations Medical Necessity Statement*: Requires further hospitalization for management of prostatitis post recent prostate biopsy while blood cultures are followed. Time Spent in Patient Care: Greater than 35 minutes Coding Level of Care Code Acute Slab Off Mill Tender for [facility] Fwd Diagnoses Acute prostatitis N41.0 Leukocytosis D72.829 Elevated bilirubin R17 Type 2 diabetes mellitus E11.9 CAD (coronary artery disease) I25.10
[2022-01-25 12:23] LABS: Thyroid Stimulating Hormone 2.78 uIU/mL (0.27-4.20)
[2022-01-25 16:52] LABS: Glucose Point of Care 236 mg/dL (70-110)
[2022-01-25 21:05] LABS: Glucose Point of Care 199 mg/dL (70-110)
[2022-01-25] MEDS: atorvastatin 40 mg Tablet 20 MG PO (21:45)
[2022-01-26] VITALS (8 sets, daily range): BP systolic 125–153; BP diastolic 76–89; PULSE 69–86; RESP 16–20; TEMP 36.3–37; O2SAT 92–96
[2022-01-26] MEDS: vancomycin 1,500 MG/300 ML PIGGYBACK 200 MG IV ×2 (03:41→11:14)
[2022-01-26 04:04] LABS: Basophils % 0.7 %; Eosinophils # 0.2 10^3/uL (0.0-0.8); Eosinophils % 3.6 %; Hematocrit 37.5 % (42.0-52.0); Hemoglobin 13.5 g/dL (11.7-16.6); Lymphocytes # 1.5 10^3/uL (0.8-4.8); Lymphocytes % 26.8 %; Mean Corpuscular Hemoglobin 34.3 pg (28.0-34.0); Mean Corpuscular Volume 95.2 fl (80-94); Mean Platelet Volume 9.7 fL (7.4-10.4); Monocytes # 0.8 10^3/uL (0.2-0.9); Monocytes % 13.7 %; Neutrophils # 3.05 10^3/uL (1.8-7.7); Neutrophils % 54.8 %; Nucleated Red Blood Cells % 0 %; Platelet Count 145 10^3/cmm (130-400); Red Blood Count 3.94 10^6/uL (4.1-5.3); Red Cell Distribution Width 12.3 % (12.1-15.1); White Blood Count 5.6 10^3/uL (4.0-10.0)
[2022-01-26 04:38] LABS: Alanine Aminotransferase 67 U/L (0-41); Albumin Level 3.2 g/dL (3.5-5.2); Alkaline Phosphatase 57 U/L (40-130); Anion Gap 12.6 (5-19); Aspartate Amino Transferase 51 U/L (0-40); Blood Urea Nitrogen 11 mg/dL (6-20); Calcium 8.5 mg/dL (8.5-10.5); Carbon Dioxide 27 mmol/L (22-29); Chloride 102 mmol/L (98-107); Chol HDL Ratio 6.42 mg/dL (1.0-5.00); Cholesterol 122 mg/dL (0-200); Globulin 2.7 g/dL (1.3-4.6); Glomerular Filtration Rate 138.9 mL/min (90-130); Glucose 140 mg/dL (65-115); HDL Cholesterol 19 mg/dL (60-100); LDL Cholesterol Calculated 75 mg/dL (50-129); Osmolality Calculated 288 mOsm/kg (285-295); Potassium 3.6 mmol/L (3.5-5.1); Sodium 138 mmol/L (136-145); Total Protein 5.9 g/dL (6.6-8.7); Triglycerides 140 mg/dL (0-150); VLDL Cholestrol Calculation 28 mg/dL (0-30)
[2022-01-26 04:43] LABS: Estmated Average Glucose 163; Hemoglobin A1C 7.3 % (4.0-6.0)
[2022-01-26 06:45] LABS: Glucose Point of Care 154 mg/dL (70-110)
[2022-01-26] MEDS: insulin lispro 100 unit/1 mL SUBCUT ×3 (09:13→20:37)
[2022-01-26] MEDS: levothyroxine 50 mcg Tablet PO (09:13)
[2022-01-26] MEDS: duloxetine 30 mg Capsule PO (09:13)
[2022-01-26] MEDS: clopidogrel 75 mg Tablet PO (09:14)
[2022-01-26] MEDS: carvedilol 6.25 mg Tablet PO ×2 (09:14→20:28)
[2022-01-26] MEDS: aspirin 81 mg Chew Tablet PO (09:14)
[2022-01-26 11:17] LABS: Vancomycin Trough 12.1 ug/mL (10-15)
[2022-01-26 11:39] LABS: Glucose Point of Care 235 mg/dL (70-110)
--- NOTE | 2022-01-26 12:46 | P.PN_ITS ---
Subjective Subjective: No acute events overnight. Patient has remained hemodynamically stable and afebrile. No fever in last 24 hours. Continues to do well. Itching to go home as soon as possible. We discussed the blood cultures from admission came back positive. We will have to await for proper speciation and sen sitivities before planning for outpatient treatment for at least 14 days from negative blood cultures. Patient is disappointed but agreeable to stay. Medications: Reviewed: Yes Vitals/I&O/Wt Last Vital Signs Temp 97.8 F 01/26/22 11:41 Pulse 80 01/26/22 11:41 Resp 18 01/26/22 11:41 BP 140/76 01/26/22 11:41 Pulse Ox 93 01/26/22 11:41 O2 Del Method 01/26/22 11:41 O2 Flow Rate 3 01/24/22 20:00 01/25/22 01/26/22 01/26/22 22:59 06:59 14:59 Intake Total 470 / 1300 350 / 1650 590 / 590 Output Total 400 / 400 675 / 1075 Balance 70 / 900 -325 / 575 590 / 590 Physical Exam Narrative: General exam, no distress currently Neck is supple no lymphadenopathy or thyromegaly Cardiovascular regular rate and rhythm without murmur, no S3 or S4 Lungs clear no wheezing or crackles Abdomen is soft, positive bowel sounds. No obvious tenderness exam is deferred Extremities no cyanosis clubbing or edema, cap refill brisk. Skin no rash Data : 01/26/22 03:23 01/26/22 03:23 Micro: Microbiology 01/25/22 13:54 Blood Culture - Preliminary Blood SPECIMEN COLLECTED 01/25/22 13:49 Blood Culture - Preliminary Blood SPECIMEN COLLECTED 01/23/22 07:20 Blood Culture - Preliminary Blood Gram Negative Rods 01/23/22 12:15 Urine Culture - Final Urine,Clean Catch A&P Assessment and plan (1) Gram-negative bacteremia: Blood cultures from admission 1 out of 4 bottles present for gram-negative rods. Repeat blood cultures sent on 01/25. Will await further speciation and specification. Patient will need antibiotics for overall 14 days after first negative blood cultures. (2) Acute prostatitis: Prostatitis seen on CT scan. Post prostate biopsy. Repeat blood cultures sent on 01/25. Going back for culture history 18 urine culture in past positive for pansensitive E. coli. Urine culture negative to date. Given gram-negative bacteremia for now can stop vancomycin. MRSA. Pending. Current screening with ceftazidime. De-escalate antibiotics as per blood culture results. (3) Leukocytosis: Resolved. (4) Elevated bilirubin: Likely secondary to infection. Improving (5) Type 2 diabetes mellitus: Moderate sliding scale insulin (6) CAD (coronary artery disease): Continue home medications Plan Multiple other medical problems as outlined in past medical history Regular diet. Full code Lovenox for DVT prophylaxis Attestations Medical Necessity Statement*: Requires further hospitalization for management of gram-negative bacteremia in setting of acute prostatitis post prostate biopsy while blood culture results are awaited for decision of antibiotic course as an outpatient Time Spent in Patient Care: Greater than 35 minutes Coding Level of Care Code Acute Learning And Development Administrator for [facility] Fredid Diagnoses Gram-negative bacteremia R78.81 Acute prostatitis N41.0 Leukocytosis D72.829 Elevated bilirubin R17 Type 2 diabetes mellitus E11.9 CAD (coronary artery disease) I25.10
[2022-01-26] MEDS: enoxaparin 40 mg/0.4 mL Syringe SUBCUT (15:32)
[2022-01-26 16:56] LABS: Glucose Point of Care 140 mg/dL (70-110)
[2022-01-26] MEDS: atorvastatin 40 mg Tablet 20 MG PO (20:28)
[2022-01-26 20:36] LABS: Glucose Point of Care 268 mg/dL (70-110)
[2022-01-27] VITALS (7 sets, daily range): BP systolic 115–144; BP diastolic 65–88; PULSE 77–85; RESP 14–20; TEMP 36.3–36.7; O2SAT 93–96
[2022-01-27 04:51] LABS: Basophils # 0.1 10^3/uL (0.0-0.1); Basophils % 1.3 %; Eosinophils # 0.3 10^3/uL (0.0-0.8); Eosinophils % 4.9 %; Hematocrit 38.2 % (42.0-52.0); Hemoglobin 13.6 g/dL (11.7-16.6); Lymphocytes % 37.2 %; Mean Corpuscular HGB Conc 35.6 g/dL (30.0-36.0); Mean Corpuscular Hemoglobin 33.7 pg (28.0-34.0); Mean Corpuscular Volume 94.8 fl (80-94); Mean Platelet Volume 9.7 fL (7.4-10.4); Monocytes # 0.6 10^3/uL (0.2-0.9); Monocytes % 11.3 %; Neutrophils # 2.34 10^3/uL (1.8-7.7); Neutrophils % 44.2 %; Nucleated Red Blood Cells % 0 %; Platelet Count 187 10^3/cmm (130-400); Red Blood Count 4.03 10^6/uL (4.1-5.3); Red Cell Distribution Width 12.3 % (12.1-15.1); White Blood Count 5.3 10^3/uL (4.0-10.0)
[2022-01-27 05:13] LABS: Alanine Aminotransferase 60 U/L (0-41); Albumin Level 3.3 g/dL (3.5-5.2); Alkaline Phosphatase 49 U/L (40-130); Anion Gap 11.6 (5-19); Aspartate Amino Transferase 35 U/L (0-40); Blood Urea Nitrogen 10 mg/dL (6-20); Calcium 8.4 mg/dL (8.5-10.5); Carbon Dioxide 29 mmol/L (22-29); Chloride 101 mmol/L (98-107); Globulin 2.7 g/dL (1.3-4.6); Glomerular Filtration Rate 138.9 mL/min (90-130); Glucose 126 mg/dL (65-115); Osmolality Calculated 287 mOsm/kg (285-295); Potassium 3.6 mmol/L (3.5-5.1); Sodium 138 mmol/L (136-145); Total Bilirubin 0.9 mg/dL (0.15-1.2)
[2022-01-27 08:18] LABS: Glucose Point of Care 142 mg/dL (70-110)
[2022-01-27] MEDS: acetaminophen 325 mg Tablet 650 MG PO (09:10)
[2022-01-27] MEDS: duloxetine 30 mg Capsule PO (09:11)
[2022-01-27] MEDS: clopidogrel 75 mg Tablet PO (09:11)
[2022-01-27] MEDS: carvedilol 6.25 mg Tablet PO (09:11)
[2022-01-27] MEDS: levothyroxine 50 mcg Tablet PO (09:11)
[2022-01-27] MEDS: aspirin 81 mg Chew Tablet PO (09:11)
--- NOTE | 2022-01-27 11:54 | P.DS_ITS ---
Discharge Providers Date of Admission: 01/24/22 08:24 Date of Discharge: January 27, 2022 Attending Provider at Admission: Rashid Neff MD Attending Provider at Discharge: Ramiro Roman Primary Care Provider: Linda Prakash MD Diagnoses at Discharge Discharge Diagnosis (1) Gram-negative bacteremia: Status: Acute (2) Acute prostatitis: Status: Acute (3) Leukocytosis: Status: Acute (4) Elevated bilirubin: Status: Acute (5) Type 2 diabetes mellitus: Status: Acute (6) CAD (coronary artery disease): Status: Acute Reason for Visit Reason for Visit: Fever Chills Hospital Course Hospital Course Pleasant 56-year-old gentleman was admitted for cyst management after presenting with chills, low temperature, sweats, some shortness of breath. Recently undergone prostate biopsy on Thursday preceding hospitalization. CT abdomen pelv is with appearance of prostatitis. Initially on tobramycin, subsequently switched over to ceftazidime. Urine cultures were unremarkable but blood culture did grow gram-negative jo-ann identified as E. coli resistant to tetracycline. Transiently elevated bilirubin improved. Noted mild elevation of troponin up to 34-25. Nonspecific T wave changes on EKG. With treatment fever resolved. Leukocytosis resolved. He is feeling much better. For now provided with additional 2 weeks antibiotic prescription, however, is asked to follow-up with neurology for reassessment, urine cultures during and a fter antibiotic course, to confirm clearance, consideration whether antibiotic course needs to be extended. He should also follow-up with regards to the results of the prostate biopsy as before. With mild elevation of troponin, nonspecific T wave changes, consider additional assessment with stress testing once out of acute illness. Continue to optimize chronic conditions. Physical Exam Narrative: at bedside. Const: COMMON NORMALS: patient oriented x3 and alert GENERAL APPEARANCE: cooperative NUTRITIONAL APPEARANCE: overweight ORIENTATION/CONSCIOUSNESS: Yes awake HENMT: COMMON NORMALS: oropharynx normal Neck/C-Spine: COMMON NORMALS: no JVD Resp: COMMON NORMALS: normal respiratory effort and clear to auscultation bilaterally AUSCULTATION: clear to auscultation bilaterally Cardio: COMMON NORMALS: no JVD, regular rhythm, S1 normal heart sound present, S2 normal heart sound present and No murmurs present (Cardio) RHYTHM: regular rhythm HEART SOUNDS: S1 normal heart sound present and S2 normal heart sound present GI: COMMON NORMALS: Normal to inspection, nondistended, normoactive bowel sounds present, Soft to palpation and non-tender PALPATION: Yes Soft to palpation Extremity: COMMON NORMALS: no joint enlargement and no pedal edema Neuro: COMMON NORMALS: patient oriented x3 and moves all extremities SENSORIUM/ORIENTATION: Yes alert Skin: COMMON NORMALS: no rashes or lesions noted GENERAL SKIN EXAM: no rashes or lesions noted Discharge Data Studies Completed and Pending Completed Studies During Hospitalization Category Date Time Status CT abdomen pelvis w con* [id number] Stat Cat Scan 01/23/22 08:06 Completed XR chest 1V portable [id number] Stat Exams 01/23/22 07:09 Completed Pending at discharge Category Date Time Status Blood Culture Stat Lab 01/23/22 07:26 Results Blood Culture Stat Lab 01/25/22 13:54 Results Radiology Impressions Chest X-Ray 01/23/22 07:09 IMPRESSION: No acute chest abnormality. Abdomen/Pelvis CT 01/23/22 08:06 IMPRESSION: 1. Mild prostate enlargement with heterogeneous enhancement and slight induration about the seminal vesicles. Some this may be due to recent biopsy. Recommend correlation for prostatitis. 2. No large hematoma or free fluid in the pelvis. 3. No obstructing renal or ureteral calculi. 4. No other acute findings. Laboratory Results WBC 5.3 10^3/uL (4.0-10.0) 01/27/22 04:24 RBC 4.03 10^6/uL (4.1-5.3) L 01/27/22 04:24 Hgb 13.6 g/dL (11.7-16.6) 01/27/22 04:24 Hct 38.2 % (42.0-52.0) L 01/27/22 04:24 MCV 94.8 fl (80-94) H 01/27/22 04:24 MCH 33.7 pg (28.0-34.0) 01/27/22 04:24 MCHC 35.6 g/dL (30.0-36.0) 01/27/22 04:24 RDW 12.3 % (12.1-15.1) 01/27/22 04:24 Plt Count 187 10^3/cmm (130-400) 01/27/22 04:24 MPV 9.7 fL (7.4-10.4) 01/27/22 04:24 Neut % (Auto) 44.2 % 01/27/22 04:24 Lymph % (Auto) 37.2 % 01/27/22 04:24 [place] % (Auto) 11.3 % 01/27/22 04:24 Eos % (Auto) 4.9 % 01/27/22 04:24 Baso % (Auto) 1.3 % 01/27/22 04:24 Neut # (Auto) 2.34 10^3/uL (1.8-7.7) 01/27/22 04:24 Lymph # (Auto) 2.0 10^3/uL (0.8-4.8) 01/27/22 04:24 [place] # (Auto) 0.6 10^3/uL (0.2-0.9) 01/27/22 04:24 Eos # (Auto) 0.3 10^3/uL (0.0-0.8) 01/27/22 04:24 Baso # (Auto) 0.1 10^3/uL (0.0-0.1) 01/27/22 04:24 Nucleated RBC % (auto) 0 % 01/27/22 04:24 Nucleated RBCs # 0.0 /100WBC 01/27/22 04:24 Sodium 138 mmol/L (136-145) 01/27/22 04:24 Potassium 3.6 mmol/L (3.5-5.1) 01/27/22 04:24 Chloride 101 mmol/L (98-107) 01/27/22 04:24 Carbon Dioxide 29 mmol/L (22-29) 01/27/22 04:24 Anion Gap 11.6 (5-19) 01/27/22 04:24 BUN 10 mg/dL (6-20) 01/27/22 04:24 Creatinine 0.6 mg/dL (0.7-1.2) L 01/27/22 04:24 GFR Calculation 138.9 mL/min (90-130) H 01/27/22 04:24 Glucose 126 mg/dL (65-115) H 01/27/22 04:24 POC Glucose 142 mg/dL (70-110) H 01/27/22 08:14 Estimat Average Glucose 163 01/26/22 03:23 Hemoglobin A1c 7.3 % (4.0-6.0) H 01/26/22 03:23 Calculated Osmolality 287 mOsm/kg (285-295) 01/27/22 04:24 Lactic Acid 3.4 mmol/L (0.5-2.2) H 01/23/22 07:20 Lactic Acid (Sepsis) 1.7 mmol/L (0.5-2.2) 01/23/22 10:41 Calcium 8.4 mg/dL (8.5-10.5) L 01/27/22 04:24 Iron 23 ug/dL (59-158) L 01/25/22 02:16 TIBC 210 mcg/dl 01/25/22 02:16 % Saturation 10.9 % (20-50) L 01/25/22 02:16 Unsat Iron Binding 187 ug/dL (112-347) 01/25/22 02:16 Total Bilirubin 0.9 mg/dL (0.15-1.2) 01/27/22 04:24 AST 35 U/L (0-40) 01/27/22 04:24 ALT 60 U/L (0-41) H 01/27/22 04:24 Alkaline Phosphatase 49 U/L (40-130) 01/27/22 04:24 Troponin T Gen 5 ng/L 25 ng/L (0-15) H 01/23/22 12:33 Total Protein 6.0 g/dL (6.6-8.7) L 01/27/22 04:24 Albumin 3.3 g/dL (3.5-5.2) L 01/27/22 04:24 Globulin 2.7 g/dL (1.3-4.6) 01/27/22 04:24 Triglycerides 140 mg/dL (0-150) 01/26/22 03:23 Cholesterol 122 mg/dL (0-200) 01/26/22 03:23 LDL Cholesterol, Calc 75 mg/dL (50-129) 01/26/22 03:23 Total VLDL Cholesterol 28 mg/dL (0-30) 01/26/22 03:23 HDL Cholesterol 19 mg/dL (60-100) L 01/26/22 03:23 Cholesterol/HDL Ratio 6.42 mg/dL (1.0-5.00) H 01/26/22 03:23 Procalcitonin 2.55 ng/mL (0-0.5) H 01/25/22 02:16 TSH 2.78 uIU/mL (0.27-4.20) 01/25/22 02:16 Urine Color Yellow (Yellow) 01/25/22 10:50 Urine Appearance Hazy (CLEAR) A 01/25/22 10:50 Urine pH 5 (5-7) 01/25/22 10:50 Ur Specific [place] 1.015 (1.005-1.030) 01/25/22 10:50 Urine Protein Trace (Negative) 01/25/22 10:50 Urine Glucose (UA) 4+ (Normal) H 01/25/22 10:50 Urine Ketones Negative (Negative) 01/25/22 10:50 Urine Blood 3+ (Negative) H 01/25/22 10:50 Urine Nitrate Negative (Negative) 01/25/22 10:50 Urine Bilirubin Neg (Negative) 01/25/22 10:50 Urine Urobilinogen Neg mg/dL (Negative) 01/25/22 10:50 Ur Leukocyte Esterase Negative (Negative) 01/25/22 10:50 Urine RBC 40-50 /hpf (0-2) H 01/25/22 10:50 Urine WBC None /hpf (0-5) 01/25/22 10:50 Ur Squamous Epith Cells None /hpf (0-5) 01/25/22 10:50 Amorphous Sediment Not Reportable 01/25/22 10:50 Urine Bacteria None /hpf (NONE) 01/25/22 10:50 Urine Mucus 1+ /hpf 01/23/22 09:20 Tobramycin Peak 2.6 ug/mL (6-10) L 01/23/22 22:15 Vancomycin Trough 12.1 ug/mL (10-15) 01/26/22 10:45 Coronavirus 229E (PCR) Not detected (NOT DETECT) 01/23/22 11:50 SARS-CoV-2 (PCR) Not detected (NOT DETECT) 01/23/22 11:50 Vitals Last Vital Signs Temp 97.3 F L 01/27/22 11:09 Pulse 79 01/27/22 11:09 Resp 20 H 01/27/22 11:09 BP 126/80 01/27/22 11:09 Pulse Ox 93 01/27/22 11:09 O2 Del Method 01/27/22 11:09 O2 Flow Rate 3 01/24/22 20:00 Discharge Plan Discharge Patient Disposition: Home Condition: Stable Prescriptions: New ciprofloxacin HCl 500 mg tablet 500 mg PO BID 14 Days Qty: 28 0RF Continued atorvastatin 20 mg tablet 20 mg PO BEDTIME diclofenac potassium 50 mg tablet 50 mg PO DAILY compounded tri mix See Rx Instructions .ROUTE .COMPLEX Rx Instructions: as directed cholecalciferol (vitamin D3) 250 mcg (10,000 unit) capsule 250 mcg PO DAILY clopidogrel [Plavix] 75 mg tablet 75 mg PO DAILY Qty: 90 3RF duloxetine [Cymbalta] 30 mg capsule,delayed release(DR/EC) 30 mg PO DAILY tramadol 50 mg tablet 50 mg PO Q6H PRN (Reason: Pain) trazodone 100 mg tablet 100 mg PO DAILY levothyroxine 50 mcg capsule 50 mcg PO DAILY aspirin 81 mg tablet,chewable 81 mg PO DAILY Ozempic 0.25 mg or 0.5 mg(2 mg/1.5 mL) pen injector 0.5 mg SUBCUT .0.5 units PRN (Reason: weekly) carvedilol 12.5 mg tablet 12.5 mg PO BID Qty: 180 1RF testosterone cypionate 200 mg/mL oil 200 mg IM .EVERY OTHER WEEK Qty: 10 5RF Rx Instructions: Please supply syringes for administration hydrochlorothiazide 25 mg tablet 12.5 mg PO BID Qty: 90 3RF losartan 100 mg tablet 150 mg PO DIRECTED Qty: 135 3RF Hold Instructions: Medication shortage Rx Instructions: 100mg in AM and 50mg in PM acetaminophen 650 mg Tablet Extended Release 1,300 mg PO Q8H PRN (Reason: Pain) Men's Multivitamin 400-20-300 mcg Tablet 1 tab PO DAILY Discharge Orders: Discharge Order (Routine); Ordered 01/27/22 Ordered By: Ramiro Roman Referrals: Linda Prakash MD [Primary Care Provider] - 4-7 days Shukri Kidd MD [Physician] - 1 week (Gram negative bacteremia. Recent prostate biopsy. Prostatitis.) Discharge Diet: Cardiac and Diabetic Discharge Activity: Increase activity as tolerated Patient Instructions: Ciprofloxacin (By mouth), Opioid Safety, Prostatitis (Ac eboni) Activity Restrictions/Additional Instructions: Please follow-up with urology for reassessment of prostatitis. Continue antibiotic until reassessment with follow-up. Discussed urine culture follow-up during and after completion of antibiotic therapy to confirm clearance of infection. Discussed with urology whether antibiotic course may need to be extended beyond 2 weeks. Follow-up with urology as previously with regards to biopsy results. Please have your primary doctor reassess liver parameters. Elevated bilirubin has improved, however, please have your primary doctor follow-up and reassess that other liver parameters have normalized. Continue to optimize diabetes control, coronary disease and other chronic medical conditions. Mild troponin abnormality, nonspecific EKG changes were noted during hospitalization with infection. In case you have not had recent cardiac assessment discussed with your primary doctor and/your jack prizer consideration of additional risk stratification with stress testing once out of acute illness. Discharge Attestations Time Spent in Discharge Care*: greater than 30 min Quality Metrics Clinical Quality Measures [ No reported AMI, CVA or VTE this stay] Coding Level of Care Code Acute Chg DC note Diagnoses Gram-negative bacteremia R78.81 Acute prostatitis N41.0 Leukocytosis D72.829 Elevated bilirubin R17 Type 2 diabetes mellitus E11.9 CAD (coronary artery disease) I25.10
[2022-01-27 11:55] LABS: Glucose Point of Care 223 mg/dL (70-110)
== END 2022-01-27 12:57 | disposition home or self-care (01) | DRG 728 ==
LOC: ER 11:19 → MEDSURG 12:02
PROVIDERS: Student in an Organized Health Care Education/Training Program; Admitting Provider Internal Medicine; Emergency Provider Family Medicine; PCP Internal Medicine; Visit Provider Internal Medicine
DX: N41.0 Acute prostatitis (principal); Z16.29 Resistance to other single specified antibiotic; B96.20 Unspecified Escherichia coli [E. coli] as the cause of diseases classified elsewhere; I25.10 Atherosclerotic heart disease of native coronary artery without angina pectoris; Z95.5 Presence of coronary angioplasty implant and graft; F32.A Depression, unspecified; I10 Essential (primary) hypertension; E78.5 Hyperlipidemia, unspecified; E03.9 Hypothyroidism, unspecified; E11.9 Type 2 diabetes mellitus without complications; I83.93 Asymptomatic varicose veins of bilateral lower extremities; Z96.651 Presence of right artificial knee joint; Z79.02 Long term (current) use of antithrombotics/antiplatelets; Z79.891 Long term (current) use of opiate analgesic; Z79.82 Long term (current) use of aspirin; Z88.1 Allergy status to other antibiotic agents; Z88.0 Allergy status to penicillin
CPT/HCPCS: 36415; 36416; 71045; 74177; 80053; 80061; 80200; 80202; 81001; 82962; 83036; 83540; 83550; 83605; 84145; 84443; 84484; 85025; 87040; 87077; 87086; 87186; 87205; 87635; 87641; 93005; 96365; 96367; 96372; 99285; G0378; J0713; J1650; J1815; J1956; J2405; J3260; J3370; J7030; Q9967

== ENCOUNTER → 2022-02-14 09:57 | Outpatient (BNVA) | payer BC, SELFPAY | PROVIDERS: PCP Internal Medicine; Visit Provider Urology | DX: N41.0 Acute prostatitis (principal); E29.1 Testicular hypofunction; C61 Malignant neoplasm of prostate | CPT/HCPCS: 81003 ==

== ENCOUNTER → 2022-06-28 13:46 | Outpatient (BNVA) | payer BC, SELFPAY | PROVIDERS: PCP Internal Medicine; Visit Provider Nurse Practitioner | DX: R39.9 Unspecified symptoms and signs involving the genitourinary system (principal); N39.8 Other specified disorders of urinary system | CPT/HCPCS: 81000; 87077; 87086; 87184 ==

== ENCOUNTER 2022-06-30 07:27 | Emergency (ER) | payer BC, SELFPAY ==
[2022-06-30 07:37] VITALS: BP 142/92; PULSE 99; RESP 16; TEMP 36.4; O2SAT 92
--- NOTE | 2022-06-30 07:38 | W.ED.MALEGU ---
HPI - Male Genitourinary General: Chief complaint: Urogenital-Male Stated complaint: Urinating blood Time Seen by Provider: 06/30/22 07:36 Source: patient Mode of arrival: ambulatory History of Present Illness: 57-year-old male presents emergency room complaining of hematuria. He had a prostatectomy in February 2022 since then he is he had several UTIs and episodes of hematuria with each episode. He is having antonio hematuria today as well some mild discomfort with urination. He has previously been treated with antibiotics of these episodes but he has not gone back to see the urologist due to his prostatectomy. No fever sweats or chills. Onset (ago): month(s) Duration: intermittent Severity: mild Relieving factors: none Exacerbating factors: none Associated symptoms: Reports hematuria; Deny discharge, dysuria, fevers/chills, nausea, rash, swelling, urinary incontinence, urinary retention, mass or vomiting Review of Systems Const: Denies: fever(s), chills, body aches, change in appetite, fatigue or malaise ENMT: Denies: throat pain, ear or mastoid pain, nasal discharge or nasal congestion Card: Denies: chest pain, edema, dyspnea on exertion or orthopnea Resp: Denies: dyspnea, productive cough or non-productive cough GI: Reports: abdominal pain; Denies: nausea or vomiting : Reports: difficulty urinating and hematuria; Denies: flank pain, dysuria, urinary frequency, urinary urgency or urinary incontinence Skin/Breast: Denies: rash or pruritus PFSH ED PFSH: Medical History CAD (coronary artery disease) Depression Essential (primary) hypertension Hyperlipidemia, unspecified Hypertension Hypogonadism Hypothyroidism Male erectile dysfunction, unspecified Pilonidal cyst Prostate cancer Rotator cuff arthropathy Type 2 diabetes mellitus Varicose 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 Surgical History H/O heart artery stent H/O prostate biopsy History of total right knee replacement Knee joint replacement by other means S/P nasal surgery Family History Mother , at age 73 Emphysema lung COPD (chronic obstructive pulmonary disease) Father , at age 59 Congestive heart failure Diabetes Social History Smoking and tobacco status: never smoked Alcohol intake: current Alcohol intake frequency: holidays/special occasions only Adopted: No Caregiver/support person: No Lives independently: No Household members: spouse Marital status: Current occupational status: employed Current gender identity: Male Physical Exam Const: COMMON NORMALS: no acute distress GENERAL APPEARANCE: cooperative and comfortable ORIENTATION/CONSCIOUSNESS: Yes awake, Yes oriented to person, Yes oriented to place and Yes oriented to time HENMT: COMMON NORMALS: normocephalic, atraumatic and hearing grossly normal bilaterally HEAD & SCALP: normocephalic and atraumatic Resp: COMMON NORMALS: normal respiratory effort, No retractions, No use of accessory muscles and clear to auscultation bilaterally AUSCULTATION: clear to auscultation bilaterally Cardio: COMMON NORMALS: regular rate, regular rhythm and No murmurs present (Cardio) RATE: regular rate RHYTHM: regular rhythm GI: COMMON NORMALS: Soft to palpation and No hepatosplenomegaly present AUSCULTATION: Yes normoactive bowel sounds PALPATION: Yes Soft to palpation, No Tenderness to palpation present (GI), No Guarding due to palpation present (GI) and Yes No hepatosplenomegaly present Extremity: COMMON NORMALS: normal to inspection, capillary refill normal, no clubbing, cyanosis or edema, no calf tenderness and no pedal edema Neuro: SENSORIUM/ORIENTATION: Yes oriented to person, Yes oriented to place and Yes oriented to time Skin: COMMON NORMALS: no rashes or lesions noted GENERAL SKIN EXAM: no rashes or lesions noted Course Vital Signs: Vital signs: Vital Signs Temperature 97.6 F 06/30/22 07:37 Pulse Rate 92 06/30/22 08:49 Respiratory Rate 16 06/30/22 07:59 Blood Pressure 142/88 06/30/22 08:49 Pulse Oximetry 93 06/30/22 08:49 Oxygen Delivery Me thod 06/30/22 08:49 MDM - Male Medical Decision Making Labs reviewed hemoglobin stable suspect patient has some underlying sleep apnea his hemoglobin is actually at the upper end of normal. Bladder scan only had 90 remaining in the bladder. UA shows 10-15 red blood cells per high-power field. Tells me he finished a course of Cipro 1 week ago. He has an appointment with urology tomorrow I do not think is anything we can or need to do in the emergency room at this time can have him follow-up with urology as planned hold off on any antibiotics till culture is resulted since he has been on multiple courses of antibiotics with no improvement of the hematuria to this point. Medical Records I reviewed the patient's medical records. Lab Data I reviewed the patient's lab results. 06/30/22 07:42 06/30/22 07:42 Laboratory Results WBC 6.7 10^3/uL (4.0-10.0) 06/30/22 07:42 RBC 5.17 10^6/uL (4.1-5.3) 06/30/22 07:42 Hgb 16.5 g/dL (11.7-16.6) 06/30/22 07:42 Hct 48.4 % (42.0-52.0) 06/30/22 07:42 MCV 93.6 fl (80-94) 06/30/22 07:42 MCH 31.9 pg (28.0-34.0) 06/30/22 07:42 MCHC 34.1 g/dL (30.0-36.0) 06/30/22 07:42 RDW 12.4 % (12.1-15.1) 06/30/22 07:42 Plt Count 215 10^3/cmm (130-400) 06/30/22 07:42 MPV 9.5 fL (7.4-10.4) 06/30/22 07:42 Neut % (Auto) 60.6 % 06/30/22 07:42 Lymph % (Auto) 24.8 % 06/30/22 07:42 [place] % (Auto) 8.5 % 06/30/22 07:42 Eos % (Auto) 4.5 % 06/30/22 07:42 Baso % (Auto) 1.0 % 06/30/22 07:42 Neut # (Auto) 4.05 10^3/uL (1.8-7.7) 06/30/22 07:42 Lymph # (Auto) 1.7 10^3/uL (0.8-4.8) 06/30/22 07:42 [place] # (Auto) 0.6 10^3/uL (0.2-0.9) 06/30/22 07:42 Eos # (Auto) 0.3 10^3/uL (0.0-0.8) 06/30/22 07:42 Baso # (Auto) 0.1 10^3/uL (0.0-0.1) 06/30/22 07:42 Nucleated RBC % (auto) 0 % 06/30/22 07:42 Nucleated RBCs # 0.0 /100WBC 06/30/22 07:42 Sodium 135 mmol/L (136-145) L 06/30/22 07:42 Potassium 4.0 mmol/L (3.5-5.1) 06/30/22 07:42 Chloride 97 mmol/L (98-107) L 06/30/22 07:42 Carbon Dioxide 24 mmol/L (22-29) 06/30/22 07:42 Anion Gap 18.0 (5-19) 06/30/22 07:42 BUN 16 mg/dL (6-20) 06/30/22 07:42 Creatinine 0.8 mg/dL (0.7-1.2) 06/30/22 07:42 GFR Calculation 99.3 mL/min (90-130) 06/30/22 07:42 Glucose 285 mg/dL (65-115) H 06/30/22 07:42 Calculated Osmolality 292 mOsm/kg (285-295) 06/30/22 07:42 Calcium 9.2 mg/dL (8.5-10.5) 06/30/22 07:42 Urine Color Yellow (Yellow) 06/30/22 07:42 Urine Appearance Clear (CLEAR) 06/30/22 07:42 Urine pH 5 (5-7) 06/30/22 07:42 Ur Specific [place] 1.015 (1.005-1.030) 06/30/22 07:42 Urine Protein Neg (Negative) 06/30/22 07:42 Urine Glucose (UA) 4+ (Normal) H 06/30/22 07:42 Urine Ketones Negative (Negative) 06/30/22 07:42 Urine Blood 3+ (Negative) H 06/30/22 07:42 Urine Nitrate Negative (Negative) 06/30/22 07:42 Urine Bilirubin Neg (Negative) 06/30/22 07:42 Urine Urobilinogen Norm mg/dL (Negative) 06/30/22 07:42 Ur Leukocyte Esterase Negative (Negative) 06/30/22 07:42 Urine RBC 10-15 /hpf (0-2) H 06/30/22 07:42 Urine WBC None /hpf (0-5) 06/30/22 07:42 Ur Squamous Epith Cells 0-4 /hpf (0-5) H 06/30/22 07:42 Amorphous Sediment Not Reportable 06/30/22 07:42 Urine Bacteria Trace /hpf (NONE) 06/30/22 07:42 Urine Mucus Trace /hpf 06/30/22 07:42 Discharge Plan Discharge Patient Disposition: Home Clinical Impression: Hematuria, Status post prostatectomy Condition: Stable Prescriptions: No Action atorvastatin 20 mg tablet 20 mg PO BEDTIME diclofenac potassium 50 mg tablet 50 mg PO DAILY compounded tri mix See Rx Instructions .ROUTE .COMPLEX Rx Instructions: as directed cholecalciferol (vitamin D3) 250 mcg (10,000 unit) capsule 250 mcg PO DAILY duloxetine [Cymbalta] 30 mg capsule,delayed release(DR/EC) 30 mg PO DAILY tramadol 50 mg tablet 50 mg PO Q6H PRN (Reason: Pain) trazodone 100 mg tablet 100 mg PO DAILY levothyroxine 50 mcg capsule 50 mcg PO DAILY aspirin 81 mg tablet,chewable 81 mg PO DAILY Ozempic 0.25 mg or 0.5 mg(2 mg/1.5 mL) pen injector 0.5 mg SUBCUT .0.5 units PRN (Reason: weekly) ciprofloxacin HCl 500 mg tablet 500 mg PO BID testosterone cypionate 200 mg/mL oil 200 mg IM .EVERY OTHER WEEK Qty: 10 5RF Rx Instructions: Please supply syringes for administration minocycline 100 mg capsule 100 mg PO BID Qty: 20 0RF hydrochlorothiazide 25 mg tablet 12.5 mg PO BID Qty: 90 3RF losartan 100 mg tablet 150 mg PO DIRECTED Qty: 135 3RF Hold Instructions: Medication shortage Rx Instructions: 100mg in AM and 50mg in PM carvedilol 12.5 mg tablet 12.5 mg PO BID Qty: 180 1RF clopidogrel [Plavix] 75 mg tablet 75 mg PO DAILY Qty: 90 3RF Men's Multivitamin 400-20-300 mcg Tablet 1 tab PO DAILY acetaminophen 650 mg tablet extended release 1,300 mg PO Q8H PRN (Reason: Pain) Discharge Orders: Discharge ED (Routine); Ordered 06/30/22 Ordered By: Rock Huber Referrals: Linda Prakash MD [Primary Care Provider] - Discharge Diet: Usual diet Discharge Activity: Resume usual activity Patient Instructions: Opioid Safety, Pain Management Activity Restrictions/Additional Instructions: Follow-up with your urologist as scheduled tomorrow. If you are unable to empty your bladder return to the emergency room. Coding Level of Care Code ED Supervisor Color Paste Mixing for Monet Jimenez
[2022-06-30 07:59] VITALS: PULSE 95; RESP 16; O2SAT 92
[2022-06-30 08:02] LABS: Basophils # 0.1 10^3/uL (0.0-0.1); Eosinophils # 0.3 10^3/uL (0.0-0.8); Eosinophils % 4.5 %; Hematocrit 48.4 % (42.0-52.0); Hemoglobin 16.5 g/dL (11.7-16.6); Lymphocytes # 1.7 10^3/uL (0.8-4.8); Lymphocytes % 24.8 %; Mean Corpuscular HGB Conc 34.1 g/dL (30.0-36.0); Mean Corpuscular Hemoglobin 31.9 pg (28.0-34.0); Mean Corpuscular Volume 93.6 fl (80-94); Mean Platelet Volume 9.5 fL (7.4-10.4); Monocytes # 0.6 10^3/uL (0.2-0.9); Monocytes % 8.5 %; Neutrophils # 4.05 10^3/uL (1.8-7.7); Neutrophils % 60.6 %; Nucleated Red Blood Cells % 0 %; Platelet Count 215 10^3/cmm (130-400); Red Blood Count 5.17 10^6/uL (4.1-5.3); Red Cell Distribution Width 12.4 % (12.1-15.1); White Blood Count 6.7 10^3/uL (4.0-10.0)
[2022-06-30 08:18] LABS: Blood Urea Nitrogen 16 mg/dL (6-20); Calcium 9.2 mg/dL (8.5-10.5); Carbon Dioxide 24 mmol/L (22-29); Chloride 97 mmol/L (98-107); Glomerular Filtration Rate 99.3 mL/min (90-130); Glucose 285 mg/dL (65-115); Osmolality Calculated 292 mOsm/kg (285-295); Sodium 135 mmol/L (136-145)
[2022-06-30 08:39] LABS: Bilirubin Urine Neg (Negative); Blood Urine 3+ (Negative); Glucose Urine UA 4+ (Normal); Ketones Urine Negative (Negative); Leukocyte Esterase Urine Negative (Negative); Nitrate Urine Negative (Negative); Protein Urine Neg (Negative); Specific Gravity, Urine 1.015 (1.005-1.030); Urine Appearance Clear (CLEAR); Urine Color Yellow (Yellow); Urobilinogen Urine Norm (Negative); pH Urine 5 (5-7)
[2022-06-30 08:40] LABS: Add Urine Culture? Yes; Add Urine Microscopic? YES; Bacteria Urine TRACE /hpf; Mucus Urine TRACE /hpf; Squamous Epithelial Cell Urine 0-4 /hpf (0-5)
[2022-06-30 08:49] VITALS: BP 142/88; PULSE 92; O2SAT 93
--- NOTE | 2022-06-30 08:53 | PC.NURSE ---
BLADDER SCANNER WAS USED PER DR. VELA VRBO 89ML WAS NOTED LEFT IN THE BLADDER AFTER VOIDING
--- NOTE | 2022-06-30 12:45 | DCPLANNER ---
Addendum entered by Carly Shaikh 06/30/22 14:51: manager bridge received the following message from the urology clinic regarding followup appointment: spoke with pt. and he is going to Dr. Blanco who did his surgery. Original Note: manager bridge had message to schedule a follow up appointment for patient with urology. manager bridge sent patients information to the front office staff at urology. Patients information will be printed and reviewed. Clinic will call patient with appointment information.
== END 2022-06-30 09:07 | disposition home or self-care (01) ==
PROVIDERS: Emergency Provider Family Medicine; PCP Internal Medicine
DX: R31.9 Hematuria, unspecified (principal); E11.9 Type 2 diabetes mellitus without complications; I10 Essential (primary) hypertension; E03.9 Hypothyroidism, unspecified; I25.10 Atherosclerotic heart disease of native coronary artery without angina pectoris; Z79.82 Long term (current) use of aspirin; Z79.85 Long-term (current) use of injectable non-insulin antidiabetic drugs; Z85.46 Personal history of malignant neoplasm of prostate; Z95.5 Presence of coronary angioplasty implant and graft; Z90.79 Acquired absence of other genital organ(s)
CPT/HCPCS: 80048; 81001; 85025; 87086; 99283

== ENCOUNTER 2023-11-04 09:17 | Day surgery (SDC) | payer BC, SELFPAY ==
--- NOTE | 2023-11-04 09:31 | ECG_ITS ---
[facility] Test Date: 2023-11-04 Pat Name: Pancho Melendez Department: Room: Gender: Male Java [employer] Developer: : 1965 Requested By: Melo Marte Order Number: [id number] Lakesha MD: Scar Morel M.D. Measurements Intervals Kirvin Rate: 84 P: 55 AK: 158 QRS: -1 QRSD: 104 T: 95 QT: 344 QTc: 407 Interpretive Statements SINUS RHYTHM NONSPECIFIC T-WAVE ABNORMALITY Compared to ECG 01/23/2022 13:45:29 Sinus tachycardia no longer present Short AK interval no longer present T-wave abnormality still present Electronically Signed On 11-04-2023 16:43:42 CDT by Scar Morel M.D. [id number]
[2023-11-04 09:54] VITALS: BP 157/102; PULSE 87; RESP 18; TEMP 36.4; O2SAT 96; BMI 37.3
[2023-11-04] MEDS: sodium chloride 0.9% 1,000 ML 30 ML IV (10:02)
[2023-11-04 10:05] LABS: Glucose Point of Care 163 mg/dL (70-110)
--- NOTE | 2023-11-04 10:20 | P.ANESASSM_ITS ---
Pre-Anesthetic Assessment Height/Weight: Height 1.83 m Weight 124.738 kg Temp Pulse Resp BP Pulse Ox O2 Del Method 97.6 F 87 18 157/102 96 Room Air 11/04/23 09:54 11/04/23 09:54 11/04/23 09:54 11/04/23 09:54 11/04/23 09:54 11/04/23 09:54 Operation Date: 11/04/23 10:45 Proposed Procedures p EGD 64875, 77758, G0105, R10.9, K52.9, R14.3, R14.1, R14.2(Not Applicable) - Melo Marte DO s Colonoscopy(Not Applicable) - Melo Marte DO Was Beta Chet taken within 24 hours: N/A Was Clonidine taken within 24 hours: N/A Last intake: Intake Last Liquid Date 11/03/23 Last Liquid Time 23:00 Last Solid Date 11/02/23 Last Solid Time 18:00 Social No alcohol and No tobacco Exam alert, oriented x 3, clear to auscultation bilaterally and regular rate & rhythm Airway Submandibular: within normal limits Cervical ROM: within normal limits Mallampati: Class I History/ROS No significant history except as noted Pulmonary Sleep Apnea CV/HEM Coronary Artery Disease and Hypertension stent several years ago, no problems since that time. METS > 4. off plavix since 10/30 None reported Hepatic None reported GI Gastroesophageal Reflux Disease ozempic, off over 7 days. patient denies symptoms today. Metabolic Diabetes Mellitus, Hyperlipidemia and Morbid Obesity [facility] [place] None reported Neuropsych Anxiety and Depression Anesthetic Plan ASA status: 3 Anesthesia: Anesthesia Evaluation and MAC Risk of > 500 ml blood loss (7ml/kg in children): Yes, adequate IV access and fluids planned Medications/Allergies Home Medications Medication Instructions Recorded Confirmed Last Taken Type duloxetine 30 mg capsule,delayed 30 mg PO DAILY 04/26/19 11/04/23 11/03/23 History release (Cymbalta) tramadol 50 mg tablet 50 mg PO Q6H PRN Pain 04/26/19 11/04/23 01/23/22 History trazodone 100 mg tablet 100 mg PO DAILY 04/26/19 11/04/23 11/03/23 History aspirin 81 mg chewable tablet 81 mg PO DAILY 06/27/19 11/04/23 10/31/23 History levothyroxine 50 mcg capsule 50 mcg PO DAILY 06/27/19 11/04/23 11/03/23 History atorvastatin 20 mg tablet 20 mg PO BEDTIME 12/27/20 11/04/23 11/03/23 History cholecalciferol (vitamin D3) 250 250 mcg PO DAILY 12/27/20 11/04/23 11/03/23 History mcg (10,000 unit) capsule diclofenac potassium 50 mg tablet 50 mg PO DAILY PRN Pain 12/27/20 11/04/23 01/23/22 History semaglutide 0.25 mg or 0.5 mg (2 0.5 mg SUBCUT .0.5 units PRN weekly 06/27/21 11/04/23 10/25/23 History mg/1.5 mL) subcutaneous pen injector (Ozempic) ilolvmit-lzknduct-enxsc acid 400 1 tab PO DAILY 01/23/22 11/04/23 11/03/23 History mcg-vit K 20 mcg-lycop 300 mcg tablet (Men's Multivitamin) clopidogrel 75 mg tablet (Plavix) 75 mg PO DAILY #90 tabs 03/24/22 11/04/23 10/31/23 Rx acetaminophen 650 mg 1,300 mg PO Q8H PRN Pain 06/15/22 11/04/23 10/31/23 History tablet,extended release carvedilol 12.5 mg tablet 12.5 mg PO BID #180 tabs 09/02/22 11/04/23 11/04/23 Rx testosterone cypionate 200 mg/mL 200 mg IM .EVERY OTHER WEEK #10 mL 09/08/22 11/04/23 10/23/23 Rx intramuscular oil hydrochlorothiazide 25 mg tablet 12.5 mg PO DAILY 11/02/23 11/04/23 11/03/23 History losartan 100 mg tablet 100 mg PO DIRECTED 11/02/23 11/04/23 11/03/23 History Allergies Allergy/AdvReac Type Severity Reaction Status Date / Time amoxicillin Allergy UNKNOWN Verified 11/02/23 09:39 penicillin V [From Pen-Vee K] Allergy UNKNOWN Verified 11/02/23 09:39 Current Medications Generic Name Dose Route Start Last Admin Trade Name Freq PRN Reason Stop Dose Admin Sodium Chloride 1,000 mls @ 30 mls/hr 11/04/23 09:45 11/04/23 10:02 Sodium Chloride 0.9% IV 11/05/23 09:44 30 mls/hr .Q24H IVETTE Administration PFSH Anesthesia Medical History Hypothyroidism Hypertension Depression Type 2 diabetes mellitus CAD (coronary artery disease) Varicose 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 Rotator cuff arthropathy Pilonidal cyst Hyperlipidemia, unspecified Essential (primary) hypertension Male erectile dysfunction, unspecified Hypogonadism Prostate cancer Surgical History H/O heart artery stent History of total right knee replacement S/P nasal surgery Knee joint replacement by other means H/O prostate biopsy Family History Mother , at age 73 Emphysema lung COPD (chronic obstructive pulmonary disease) Father , at age 59 Congestive heart failure (CHF) Diabetes Social History Smoking and tobacco/nicotine status: never used tobacco/nicotine Alcohol intake: current Alcohol intake frequency: holidays/special occasions only Substance/Drug Use: never Adopted: No Caregiver/support person: No Lives independently: No Household members: spouse Marital status: Current occupational status: employed Current gender identity: Male Data Anesthesia Cardiac Studies: No Data to Display
--- NOTE | 2023-11-04 10:59 | PM.HP ---
Providers/Chief Complaint Primary Care Provider: Linda Prakash MD Chief Complaint: R10.9, K52.9, R14.3 ,R14.1, R14.2 History of Present Illness Pancho Melendez is a 58 year old male Review of Systems General: Reports: 10 or more systems reviewed and unremarkable except in HPI and below Medications/Allergies Home Medications Medication Instructions Recorded Confirmed Last Taken Type duloxetine 30 mg capsule,delayed 30 mg PO DAILY 04/26/19 11/04/23 11/03/23 History release (Cymbalta) tramadol 50 mg tablet 50 mg PO Q6H PRN Pain 04/26/19 11/04/23 01/23/22 History trazodone 100 mg tablet 100 mg PO DAILY 04/26/19 11/04/23 11/03/23 History aspirin 81 mg chewable tablet 81 mg PO DAILY 06/27/19 11/04/23 10/31/23 History levothyroxine 50 mcg capsule 50 mcg PO DAILY 06/27/19 11/04/23 11/03/23 History atorvastatin 20 mg tablet 20 mg PO BEDTIME 12/27/20 11/04/23 11/03/23 History cholecalciferol (vitamin D3) 250 250 mcg PO DAILY 12/27/20 11/04/23 11/03/23 History mcg (10,000 unit) capsule diclofenac potassium 50 mg tablet 50 mg PO DAILY PRN Pain 12/27/20 11/04/23 01/23/22 History semaglutide 0.25 mg or 0.5 mg (2 0.5 mg SUBCUT .0.5 units PRN weekly 06/27/21 11/04/23 10/25/23 History mg/1.5 mL) subcutaneous pen injector (Ozempic) fbyduwco-tviwlaww-slyig acid 400 1 tab PO DAILY 01/23/22 11/04/23 11/03/23 History mcg-vit K 20 mcg-lycop 300 mcg tablet (Men's Multivitamin) clopidogrel 75 mg tablet (Plavix) 75 mg PO DAILY #90 tabs 03/24/22 11/04/23 10/31/23 Rx acetaminophen 650 mg 1,300 mg PO Q8H PRN Pain 06/15/22 11/04/23 10/31/23 History tablet,extended release carvedilol 12.5 mg tablet 12.5 mg PO BID #180 tabs 09/02/22 11/04/23 11/04/23 Rx testosterone cypionate 200 mg/mL 200 mg IM .EVERY OTHER WEEK #10 mL 09/08/22 11/04/23 10/23/23 Rx intramuscular oil hydrochlorothiazide 25 mg tablet 12.5 mg PO DAILY 11/02/23 11/04/23 11/03/23 History losartan 100 mg tablet 100 mg PO DIRECTED 11/02/23 11/04/23 11/03/23 History Allergies Allergy/AdvReac Type Severity Reaction Status Date / Time amoxicillin Allergy UNKNOWN Verified 11/02/23 09:39 penicillin V [From Pen-Vee K] Allergy UNKNOWN Verified 11/02/23 09:39 PFSH Acute PFSH: Medical History Hypothyroidism Hypertension Depression Type 2 diabetes mellitus CAD (coronary artery disease) Varicose 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 Rotator cuff arthropathy Pilonidal cyst Hyperlipidemia, unspecified Essential (primary) hypertension Male erectile dysfunction, unspecified Hypogonadism Prostate cancer Surgical History H/O heart artery stent History of total right knee replacement S/P nasal surgery Knee joint replacement by other means H/O prostate biopsy Family History Mother , at age 73 Emphysema lung COPD (chronic obstructive pulmonary disease) Father , at age 59 Congestive heart failure (CHF) Diabetes Social History Smoking and tobacco/nicotine status: never used tobacco/nicotine Alcohol intake: current Alcohol intake frequency: holidays/special occasions only Substance/Drug Use: never Adopted: No Caregiver/support person: No Lives independently: No Household members: spouse Marital status: Current occupational status: employed Current gender identity: Male Vitals/I&O/Wt Last Vital Signs Temp 97.6 F 11/04/23 09:54 Pulse 87 11/04/23 09:54 Resp 18 11/04/23 09:54 BP 157/102 11/04/23 09:54 Pulse Ox 96 11/04/23 09:54 O2 Del Method Room Air 11/04/23 09:54 Weight last 48 hrs Weight 275 lb A&P Assessment and plan (1) Abdominal pain: (2) Chronic diarrhea: (3) Flatulence, eructation and gas pain: Plan EGD Diagnostic colonoscopy with random biopsies Attestations Medical Necessity Statement*: home Coding Level of Care Code Acute Code for Chg Fwd Diagnoses Abdominal pain R10.9 Chronic diarrhea K52.9 Flatulence, eructation and gas pain R14.3; R14.1; R14.2
[2023-11-04] MEDS: EPINEPHrine 1 mg/mL INJ 0.3 MG XX (11:16)
[2023-11-04 11:56] VITALS: BP 104/75; PULSE 92; RESP 18; TEMP 36.5; O2SAT 93
[2023-11-04 12:11] VITALS: BP 115/80; PULSE 95; RESP 18; O2SAT 93
--- NOTE | 2023-11-04 12:45 | ANE.PACU2 ---
Inpatient post-anesthesia follow up: Airway intact: Yes Vital signs: Temperature 97.7 F Pulse Rate 95 Respiratory Rate 18 Blood Pressure 115/80 Pulse Oximetry 93 Oxygen Delivery Me thod Room Air Oxygen Flow Rate Fraction of Inspir ed Oxygen Hydration adequate: Yes Nausea and vomiting: No Pain level: 1 Mental status: Baseline
[2023-11-04 13:47] LABS: C.Diff PCR (Lab) NEGATIVE (Negative)
== END 2023-11-04 12:45 | disposition home or self-care (01) ==
PROVIDERS: PCP Internal Medicine; Visit Provider Surgery
PROC: 0DJ08ZZ Inspection of Upper Intestinal Tract, Via Natural or Artificial Opening Endoscopic (ICD-10-PCS; CPT 43235; principal; 2023-11-04 10:45)
PROC: 0DJD8ZZ Inspection of Lower Intestinal Tract, Via Natural or Artificial Opening Endoscopic (ICD-10-PCS; CPT 45378; 2023-11-04 10:45)
DX: K52.9 Noninfective gastroenteritis and colitis, unspecified (principal); R14.3 Flatulence; R14.1 Gas pain; R14.2 Eructation; R10.9 Unspecified abdominal pain; D12.2 Benign neoplasm of ascending colon; K63.5 Polyp of colon; K20.90 Esophagitis, unspecified without bleeding; K57.30 Diverticulosis of large intestine without perforation or abscess without bleeding; K31.7 Polyp of stomach and duodenum; K29.80 Duodenitis without bleeding
CPT/HCPCS: 36416; 43239; 43251; 45380; 45385; 82274; 82962; 83630; 87045; 87177; 87209; 87427; 87449; 87493; 88305; 93005; J0171; J2704; J3010; J7030

== ENCOUNTER 2023-11-10 14:27 | Observation (INO) | payer BC, SELFPAY ==
[2023-11-10 14:42] VITALS: BP 89/63; PULSE 104; RESP 18; TEMP 36.7; O2SAT 97
[2023-11-10 14:53] LABS: Basophils # 0.1 10^3/uL (0.0-0.1); Basophils % 0.8 %; Eosinophils # 0.4 10^3/uL (0.0-0.8); Lymphocytes % 24.1 %; Mean Corpuscular HGB Conc 35.4 g/dL (30-55); Mean Corpuscular Hemoglobin 33.1 pg (27-33); Mean Corpuscular Volume 93.5 fl (82-101); Mean Platelet Volume 9.5 fL (7.4-10.4); Monocytes # 0.6 10^3/uL (0.2-0.9); Monocytes % 6.8 %; Neutrophils % 62.3 %; Nucleated Red Blood Cells % 0 %; Platelet Count 245 10^3/cmm (157-399); Red Blood Count 4.17 10^6/uL (3.85-5.65); Red Cell Distribution Width 11.9 % (12.1-15.1); White Blood Count 8.35 10^3/uL (3.29-11.43)
[2023-11-10 15:12] LABS: Alanine Aminotransferase 38 U/L (0-41); Albumin Level 3.8 g/dL (3.5-5.2); Alkaline Phosphatase 74 U/L (40-130); Anion Gap 17.4 (5-19); Aspartate Amino Transferase 25 U/L (0-40); Blood Urea Nitrogen 18 mg/dL (6-20); Calcium 8.6 mg/dL (8.5-10.5); Carbon Dioxide 23 mmol/L (22-29); Chloride 100 mmol/L (98-107); Globulin 2.4 g/dL (1.3-4.6); Glomerular Filtration Rate 86.4 mL/min (90-130); Glucose 273 mg/dL (65-115); Lipase 63 U/L (13-60); Osmolality Calculated 294 mOsm/kg (285-295); Potassium 4.4 mmol/L (3.5-5.1); Sodium 136 mmol/L (136-145); Total Protein 6.2 g/dL (6.6-8.7)
[2023-11-10 15:13] LABS: INR 1.01 (0.8-1.2)
[2023-11-10 15:28] LABS: Partial Thromboplastin Time 22.3 SECONDS (23.9-36.7)
--- NOTE | 2023-11-10 15:47 | W.ED.GIBLEED ---
Documented by User: JACINTO Chawla 11/10/23 16:44 HPI - GI Bleed General: Chief complaint: GI Bleed Stated complaint: passing blood during bowel movements Time Seen by Provider: 11/10/23 15:07 Source: patient and family Mode of arrival: wheelchair Limitations: no limitations History of Present Illness: Patient is a nice 58-year-old male who presents to ED today along with his for evaluation of rectal bleeding. Patient states he is 6 days status post colonoscopy/endoscopy by Dr. Marte. Reports several polyps were removed during the colonoscopy. States he did not have any symptoms following the procedure and the several days thereafter however around 7 AM yesterday morning he began having bright red blood per rectum that has gradually gotten darker but were consistently large volume bloody stools-reports approximately 12 total. He is not having any abdominal pain. He feels dizzy and lethargic. He arrives mildly tachycardic and hypotensive. MD complaint: gross hematochezia Onset (ago): day(s) Relieving factors: none Exacerbating factors: bowel movement Context: other (recent endoscopy/colonoscopy ) Associated symptoms: Denies abdominal pain, chills, fever(s), headache(s), malaise, nausea, rash or vomiting Treatments Prior to Arrival: none Review of Systems Const: Denies: fever(s), chills, body aches, fatigue or malaise Card: Denies: chest pain Resp: Denies: dyspnea GI: Reports: hematochezia; Denies: abdominal pain, nausea, vomiting, hematemesis or melena Musc: Denies: neck pain, back pain, extremity pain or joint pain Skin/Breast: Denies: rash Neuro: Denies: headache(s), numbness in extremities, weakness in extremities, sensory changes or dizziness PFS ED PFSH: Medical History Hypothyroidism Hypertension Depression Type 2 diabetes mellitus CAD (coronary artery disease) Varicose 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 Rotator cuff arthropathy Pilonidal cyst Hyperlipidemia, unspecified Essential (primary) hypertension Male erectile dysfunction, unspecified Hypogonadism Prostate cancer Surgical History H/O heart artery stent History of total right knee replacement S/P nasal surgery Knee joint replacement by other means H/O prostate biopsy Family History Mother , at age 73 Emphysema lung COPD (chronic obstructive pulmonary disease) Father , at age 59 Congestive heart failure (CHF) Diabetes Social History Smoking and tobacco/nicotine status: never used tobacco/nicotine Alcohol intake: current Alcohol intake frequency: holidays/special occasions only Substance/Drug Use: never Adopted: No Caregiver/support person: No Lives independently: No Household members: spouse Marital status: Current occupational status: employed Current gender identity: Male Physical Exam Const: COMMON NORMALS: no acute distress, patient oriented x3, no limitations, alert and well nourished GENERAL APPEARANCE: cooperative NUTRITIONAL APPEARANCE: overweight Resp: COMMON NORMALS: normal respiratory effort and clear to auscultation bilaterally AUSCULTATION: clear to auscultation bilaterally Cardio: COMMON NORMALS: regular rate and regular rhythm RATE: regular rate RHYTHM: regular rhythm GI: COMMON NORMALS: Normal to inspection, nondistended, normoactive bowel sounds present, Soft to palpation, non-tender, No hepatosplenomegaly present and no masses INSPECTION: Yes normal to inspection PALPATION: Yes Soft to palpation and Yes No hepatosplenomegaly present : COMMON NORMALS: Yes no CVA tenderness BLADDER/KIDNEY EXAM: Yes no CVA tenderness Back/Pelvis: COMMON NORMALS: no CVA tenderness Extremity: GENERAL: Yes normal exam except as noted Neuro: COMMON NORMALS: patient oriented x3 SENSORIUM/ORIENTATION: Yes alert Course Consultations: Consultation #1: Dr. Marte-recommends 2 bottles mag citrate, 4 tabs Dulcolax, IV fluids, CT scan, and admission to him and he will plan on repeat scope tomorrow Vital Signs: Vital signs: Vital Signs Temperature 98.3 F 11/10/23 20:00 Pulse Rate 105 H 11/10/23 20:00 Respiratory Rate 16 11/10/23 20:00 Blood Pressure 113/73 11/10/23 20:00 Pulse Oximetry 95 11/10/23 20:00 Oxygen Delivery Me thod Room Air 11/10/23 20:00 MDM - GI Bleed Medical Decision Making Patient is a nice 58-year-old male here for evaluation of gross hematochezia. He has 6 days status post endoscopy/colonoscopy. Several areas were biopsied/polypectomies performed including colon, antrum, duodenal bulb, etc. He arrives hypotensive and tachycardic. H/H at this time are 13.8/39. He was given IV fluids. Spoke to Dr. Marte who will admit with plan for bowel prep and will scope again tomorrow to evaluate for source of bleeding. Dr. Contie aware of patient and will place admit orders. Medical Records I reviewed the patient's medical records. Lab Data I reviewed the patient's lab results. 11/10/23 14:43 11/10/23 14:43 Radiology Impressions Abdomen/Pelvis CT 11/10/23 16:05 IMPRESSION: No acute findings.Non acute findings as described above. Laboratory Results WBC 8.35 10^3/uL (3.29-11.43) 11/10/23 14:43 RBC 4.17 10^6/uL (3.85-5.65) 11/10/23 14:43 Hgb 13.80 g/dL (11.27-16.99) 11/10/23 14:43 Hct 39.0 % (37-53) 11/10/23 14:43 MCV 93.5 fl (82-101) 11/10/23 14:43 MCH 33.1 pg (27-33) H 11/10/23 14:43 MCHC 35.4 g/dL (30-55) 11/10/23 14:43 RDW 11.9 % (12.1-15.1) L 11/10/23 14:43 Plt Count 245 10^3/cmm (157-399) 11/10/23 14:43 MPV 9.5 fL (7.4-10.4) 11/10/23 14:43 Neut % (Auto) 62.3 % 11/10/23 14:43 Lymph % (Auto) 24.1 % 11/10/23 14:43 [place] % (Auto) 6.8 % 11/10/23 14:43 Eos % (Auto) 5.0 % 11/10/23 14:43 Baso % (Auto) 0.8 % 11/10/23 14:43 Neut # (Auto) 5.20 10^3/uL (1.8-7.7) 11/10/23 14:43 Lymph # (Auto) 2.0 10^3/uL (0.8-4.8) 11/10/23 14:43 [place] # (Auto) 0.6 10^3/uL (0.2-0.9) 11/10/23 14:43 Eos # (Auto) 0.4 10^3/uL (0.0-0.8) 11/10/23 14:43 Baso # (Auto) 0.1 10^3/uL (0.0-0.1) 11/10/23 14:43 Nucleated RBC % (auto) 0 % 11/10/23 14:43 Nucleated RBCs # 0.0 /100WBC 11/10/23 14:43 PT 13.60 SECONDS (12.1-14.9) 11/10/23 14:43 INR 1.01 (0.8-1.2) 11/10/23 14:43 APTT 22.3 SECONDS (23.9-36.7) L 11/10/23 14:43 Sodium 136 mmol/L (136-145) 11/10/23 14:43 Potassium 4.4 mmol/L (3.5-5.1) 11/10/23 14:43 Chloride 100 mmol/L (98-107) 11/10/23 14:43 Carbon Dioxide 23 mmol/L (22-29) 11/10/23 14:43 Anion Gap 17.4 (5-19) 11/10/23 14:43 BUN 18 mg/dL (6-20) 11/10/23 14:43 Creatinine 0.9 mg/dL (0.7-1.2) 11/10/23 14:43 GFR Calculation 86.4 mL/min (90-130) L 11/10/23 14:43 Glucose 273 mg/dL (65-115) H 11/10/23 14:43 Calculated Osmolality 294 mOsm/kg (285-295) 11/10/23 14:43 Calcium 8.6 mg/dL (8.5-10.5) 11/10/23 14:43 Total Bilirubin 1.0 mg/dL (0.15-1.2) 11/10/23 14:43 AST 25 U/L (0-40) 11/10/23 14:43 ALT 38 U/L (0-41) 11/10/23 14:43 Alkaline Phosphatase 74 U/L (40-130) 11/10/23 14:43 Total Protein 6.2 g/dL (6.6-8.7) L 11/10/23 14:43 Albumin 3.8 g/dL (3.5-5.2) 11/10/23 14:43 Globulin 2.4 g/dL (1.3-4.6) 11/10/23 14:43 Lipase 63 U/L (13-60) H 11/10/23 14:43 Discharge Plan Discharge Patient Disposition: Admitted As Inpatient Admit Provider: Melo Marte Clinical Impression: Acute GI bleeding Condition: Stable Coding Level of Care Code ED Accounts Payable Representative for Chg Fwd Documented by User: Lawrence Ferguson MD 11/10/23 20:24 HPI - GI Bleed General: Chief complaint: GI Bleed Stated complaint: passing blood during bowel movements Time Seen by Provider: 11/10/23 15:07 PFSH ED PFSH: Medical History Hypothyroidism Hypertension Depression Type 2 diabetes mellitus CAD (coronary artery disease) Varicose 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 Rotator cuff arthropathy Pilonidal cyst Hyperlipidemia, unspecified Essential (primary) hypertension Male erectile dysfunction, unspecified Hypogonadism Prostate cancer Surgical History H/O heart artery stent History of total right knee replacement S/P nasal surgery Knee joint replacement by other means H/O prostate biopsy Family History Mother , at age 73 Emphysema lung COPD (chronic obstructive pulmonary disease) Father , at age 59 Congestive heart failure (CHF) Diabetes Social History Smoking and tobacco/nicotine status: never used tobacco/nicotine Alcohol intake: current Alcohol intake frequency: holidays/special occasions only Substance/Drug Use: never Adopted: No Caregiver/support person: No Lives independently: No Household members: spouse Marital status: Current occupational status: employed Current gender identity: Male Course Vital Signs: Vital signs: Vital Signs Temperature 98.3 F 11/10/23 20:00 Pulse Rate 105 H 11/10/23 20:00 Respiratory Rate 16 11/10/23 20:00 Blood Pressure 113/73 11/10/23 20:00 Pulse Oximetry 95 11/10/23 20:00 Oxygen Delivery Me thod Room Air 11/10/23 20:00 MDM - GI Bleed Medical Decision Making Patient is a nice 58-year-old male here for evaluation of gross hematochezia. He has 6 days status post endoscopy/colonoscopy. Several areas were biopsied/polypectomies performed including colon, antrum, duodenal bulb, etc. He arrives hypotensive and tachycardic. H/H at this time are 13.8/39. He was given IV fluids. Spoke to Dr. Marte who will admit with plan for bowel prep and will scope again tomorrow to evaluate for source of bleeding. Dr. Ferguson aware of patient and will place admit orders. Saw patient with above midlevel agree with her history physical will admit at this time Lab Data 11/10/23 14:43 11/10/23 14:43 Radiology Impressions Abdomen/Pelvis CT 11/10/23 16:05 IMPRESSION: No acute findings.Non acute findings as described above. Laboratory Results WBC 8.35 10^3/uL (3.29-11.43) 11/10/23 14:43 RBC 4.17 10^6/uL (3.85-5.65) 11/10/23 14:43 Hgb 13.80 g/dL (11.27-16.99) 11/10/23 14:43 Hct 39.0 % (37-53) 11/10/23 14:43 MCV 93.5 fl (82-101) 11/10/23 14:43 MCH 33.1 pg (27-33) H 11/10/23 14:43 MCHC 35.4 g/dL (30-55) 11/10/23 14:43 RDW 11.9 % (12.1-15.1) L 11/10/23 14:43 Plt Count 245 10^3/cmm (157-399) 11/10/23 14:43 MPV 9.5 fL (7.4-10.4) 11/10/23 14:43 Neut % (Auto) 62.3 % 11/10/23 14:43 Lymph % (Auto) 24.1 % 11/10/23 14:43 [place] % (Auto) 6.8 % 11/10/23 14:43 Eos % (Auto) 5.0 % 11/10/23 14:43 Baso % (Auto) 0.8 % 11/10/23 14:43 Neut # (Auto) 5.20 10^3/uL (1.8-7.7) 11/10/23 14:43 Lymph # (Auto) 2.0 10^3/uL (0.8-4.8) 11/10/23 14:43 [place] # (Auto) 0.6 10^3/uL (0.2-0.9) 11/10/23 14:43 Eos # (Auto) 0.4 10^3/uL (0.0-0.8) 11/10/23 14:43 Baso # (Auto) 0.1 10^3/uL (0.0-0.1) 11/10/23 14:43 Nucleated RBC % (auto) 0 % 11/10/23 14:43 Nucleated RBCs # 0.0 /100WBC 11/10/23 14:43 PT 13.60 SECONDS (12.1-14.9) 11/10/23 14:43 INR 1.01 (0.8-1.2) 11/10/23 14:43 APTT 22.3 SECONDS (23.9-36.7) L 11/10/23 14:43 Sodium 136 mmol/L (136-145) 11/10/23 14:43 Potassium 4.4 mmol/L (3.5-5.1) 11/10/23 14:43 Chloride 100 mmol/L (98-107) 11/10/23 14:43 Carbon Dioxide 23 mmol/L (22-29) 11/10/23 14:43 Anion Gap 17.4 (5-19) 11/10/23 14:43 BUN 18 mg/dL (6-20) 11/10/23 14:43 Creatinine 0.9 mg/dL (0.7-1.2) 11/10/23 14:43 GFR Calculation 86.4 mL/min (90-130) L 11/10/23 14:43 Glucose 273 mg/dL (65-115) H 11/10/23 14:43 Calculated Osmolality 294 mOsm/kg (285-295) 11/10/23 14:43 Calcium 8.6 mg/dL (8.5-10.5) 11/10/23 14:43 Total Bilirubin 1.0 mg/dL (0.15-1.2) 11/10/23 14:43 AST 25 U/L (0-40) 11/10/23 14:43 ALT 38 U/L (0-41) 11/10/23 14:43 Alkaline Phosphatase 74 U/L (40-130) 11/10/23 14:43 Total Protein 6.2 g/dL (6.6-8.7) L 11/10/23 14:43 Albumin 3.8 g/dL (3.5-5.2) 11/10/23 14:43 Globulin 2.4 g/dL (1.3-4.6) 11/10/23 14:43 Lipase 63 U/L (13-60) H 11/10/23 14:43 All radiology interpretation(s) finalized by discharge Discharge Plan Discharge Patient Disposition: Admitted As Inpatient Admit Provider: Melo Marte Clinical Impression: Acute GI bleeding Condition: Stable Coding Level of Care Code ED Accounts Payable Representative for Monet Jimenez
--- NOTE | 2023-11-10 16:05 | CTR_ITS ---
PROCEDURE INFORMATION: Exam: CT Abdomen And Pelvis With Contrast Exam date and time: 11/10/2023 4:33 PM Age: 58 years old Clinical indication: Other: Gi bleed; Prior surgery; Surgery date: 3-7 days post-operative; Surgery type: C/O wed PT had scope with Dr banegas- polyp removal. Thursday am PT reports that he had bm with bright red blood. Since has had about 12x of this. Fatigue today with dizziness. TECHNIQUE: Imaging protocol: Computed tomography of the abdomen and pelvis with contrast. Contrast material: OMNI 350; Contrast volume: 100 ml; Contrast route: INTRAVENOUS (IV); COMPARISON: CT abdomen pelvis w con* [id number] 01/23/2022 8:29 AM RADIATION DOSE METRICS: Total DLP (mGy-cm): 1235 FINDINGS: Tubes, catheters and devices: Partially visualized device along the base of the penis with a implanted in the right lower quadrant subcutaneous soft tissues. Liver: Normal. No mass. Gallbladder and biliary ducts: Normal. No calcified stones. No ductal dilation. Pancreas: [id number] fatty atrophy of the pancreas. Spleen: Normal. No splenomegaly. Adrenal glands: Normal. No mass. Kidneys and ureters: Bilateral renal cysts with benign features the larger of which measures 2.8 cm in the craniocaudad dimension in the right kidney. Follow-up is not necessary. Bilateral nonobstructing renal calculi the larger of which measures 7 mm in the lower pole calyx of the right kidney. Stomach and bowel: Unremarkable. No obstruction. No mucosal thickening. Appendix: No evidence of appendicitis. Intraperitoneal space: Unremarkable. No free air. No significant fluid collection. Vasculature: Unremarkable. No abdominal aortic aneurysm. Lymph nodes: Unremarkable. No enlarged lymph nodes. Urinary bladder: Unremarkable as visualized. Reproductive: Unremarkable as visualized. Bones/joints: There are degenerative changes in the visualized spine. Grade 1 degenerative anterolisthesis of L4 on L5. There are lower lumbar broad-based disc osteophyte complexes contributing to bilateral neural foramina narrowing. Soft tissues: Unremarkable. CT/CT abdomen pelvis w con* [id number] IMPRESSION: No acute findings.Non acute findings as described above.
[2023-11-10] MEDS: sodium chloride 0.9% 1,000 ML 999 ML IV (16:30)
[2023-11-10] MEDS: bisacodyl 5 mg Tablet 20 MG PO (16:30)
[2023-11-10] MEDS: magnesium citrate Btl 296 mL 592 ML PO (16:30)
[2023-11-10] MEDS: iohexol 350 mg/mL 500 mL Btl (per mL) IV (16:37)
[2023-11-10 17:29] VITALS: BP 104/75; PULSE 97; O2SAT 97
[2023-11-10 17:30] VITALS: BP 104/75; BP 87/59; BP 96/62; PULSE 100; PULSE 108; PULSE 97
--- NOTE | 2023-11-10 17:42 | PC.NURSE ---
Addendum entered by Audrey Lam LPN 11/10/23 18:09: Pt up to med surg floor, room 257, at 1805. Original Note: This nurse received report from JAMAAL Angelo in ER at 1741.
[2023-11-10 18:08] VITALS: BP 104/75; PULSE 97; RESP 18; TEMP 36.7; O2SAT 97
[2023-11-10 18:11] VITALS: BMI 36.6
[2023-11-10 20:00] VITALS: BP 113/73; PULSE 105; RESP 16; TEMP 36.8; O2SAT 95
[2023-11-11] VITALS (16 sets, daily range): BP systolic 98–145; BP diastolic 56–98; PULSE 96–116; RESP 16–19; TEMP 36.4–37.3; O2SAT 92–99
[2023-11-11 06:22] LABS: Glucose Point of Care 209 mg/dL (70-110)
[2023-11-11 07:46] LABS: Hematocrit 28.8 % (37-53)
[2023-11-11 08:02] LABS: Basophils # 0.1 10^3/uL (0.0-0.1); Basophils % 0.7 %; Eosinophils # 0.4 10^3/uL (0.0-0.8); Eosinophils % 4.8 %; Hematocrit 29.2 % (37-53); Lymphocytes # 2.1 10^3/uL (0.8-4.8); Lymphocytes % 25.9 %; Mean Corpuscular HGB Conc 34.6 g/dL (30-55); Mean Corpuscular Volume 95.4 fl (82-101); Mean Platelet Volume 9.8 fL (7.4-10.4); Monocytes # 0.6 10^3/uL (0.2-0.9); Monocytes % 7.5 %; Neutrophils # 4.87 10^3/uL (1.8-7.7); Neutrophils % 60.1 %; Nucleated Red Blood Cells % 0 %; Platelet Count 212 10^3/cmm (157-399); Red Blood Count 3.06 10^6/uL (3.85-5.65); Red Cell Distribution Width 12.3 % (12.1-15.1); White Blood Count 8.11 10^3/uL (3.29-11.43)
[2023-11-11 08:13] LABS: Anion Gap 14.4 (5-19); Blood Urea Nitrogen 14 mg/dL (6-20); Calcium 8.2 mg/dL (8.5-10.5); Carbon Dioxide 25 mmol/L (22-29); Chloride 102 mmol/L (98-107); Creatinine Clr Calc Pharmacy 156.5338; Glomerular Filtration Rate 115.4 mL/min (90-130); Glucose 197 mg/dL (65-115); Osmolality Calculated 290 mOsm/kg (285-295); Potassium 4.4 mmol/L (3.5-5.1); Sodium 137 mmol/L (136-145)
--- NOTE | 2023-11-11 11:18 | P.HP_ITS ---
Providers/Chief Complaint 2 Admitting Physician: Melo Marte DO Primary Care Provider: Linda Prakash MD Chief Complaint: passing blood during bowel movements History of Present Illness Pancho Melendez is a 58 year old male who presented to the hospital with bloody bowel movements for 1 day. He reports that he is passing some dark blood as well as bright red blood. He denies any abdominal pain nausea or emesis. 6 days prior to him presenting to the ER he underwent EGD and colonoscopy. He was found to have numerous colon polyps which were removed. He did not have any blood per rectum for 5 days after the procedure before bleeding started. Polyps were found to be tubular adenomas and hyperplastic polyps. He also had a benign stromal polyp in his stomach Review of Systems 2 General: Reports: 10 or more systems reviewed and unremarkable except in HPI and below Medications/Allergies Home Medications Medication Instructions Recorded Confirmed Last Taken Type duloxetine 30 mg capsule,delayed 30 mg PO DAILY 04/26/19 11/11/23 11/03/23 History release (Cymbalta) tramadol 50 mg tablet 50 mg PO Q6H PRN Pain 04/26/19 11/11/23 01/23/22 History trazodone 100 mg tablet 100 mg PO BEDTIME 04/26/19 11/11/23 11/03/23 History aspirin 81 mg chewable tablet 81 mg PO DAILY 06/27/19 11/11/23 10/31/23 History levothyroxine 50 mcg capsule 50 mcg PO DAILY 06/27/19 11/11/23 11/03/23 History atorvastatin 20 mg tablet 20 mg PO BEDTIME 12/27/20 11/11/23 11/03/23 History cholecalciferol (vitamin D3) 250 250 mcg PO DAILY 12/27/20 11/11/23 11/03/23 History mcg (10,000 unit) capsule semaglutide 0.25 mg or 0.5 mg (2 0.5 mg SUBCUT Q7D weekly 06/27/21 11/11/23 10/25/23 History mg/1.5 mL) subcutaneous pen injector (Ozempic) njipczue-lxmtljrf-eygvb acid 400 1 tab PO DAILY 01/23/22 11/11/23 11/03/23 History mcg-vit K 20 mcg-lycop 300 mcg tablet (Men's Multivitamin) clopidogrel 75 mg tablet (Plavix) 75 mg PO DAILY #90 tabs 03/24/22 11/11/23 10/31/23 Rx acetaminophen 650 mg 1,300 mg PO Q8H PRN Pain 06/15/22 11/11/23 10/31/23 History tablet,extended release carvedilol 12.5 mg tablet 12.5 mg PO BID #180 tabs 09/02/22 11/11/23 11/04/23 Rx testosterone cypionate 200 mg/mL 200 mg IM .EVERY OTHER WEEK #10 mL 09/08/22 11/11/23 10/23/23 Rx intramuscular oil hydrochlorothiazide 25 mg tablet 12.5 mg PO DAILY 11/02/23 11/11/23 11/03/23 History losartan 100 mg tablet 100 mg PO DAILY 11/02/23 11/11/23 11/03/23 History pantoprazole 40 mg tablet,delayed 40 mg PO BID 6 weeks #84 tabs 11/04/23 11/11/23 Unknown Rx release potassium 99 mg tablet 99 mg PO DAILY 11/11/23 11/11/23 Unknown History Allergies Allergy/AdvReac Type Severity Reaction Status Date / Time amoxicillin Allergy UNKNOWN Verified 11/10/23 14:49 penicillin V [From Pen-Vee K] Allergy UNKNOWN Verified 11/10/23 14:49 PFSH Acute 2 PFSH: Medical History Hypothyroidism Hypertension Depression Type 2 diabetes mellitus CAD (coronary artery disease) Varicose 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 Rotator cuff arthropathy Pilonidal cyst Hyperlipidemia, unspecified Essential (primary) hypertension Male erectile dysfunction, unspecified Hypogonadism Prostate cancer Surgical History H/O heart artery stent History of total right knee replacement S/P nasal surgery Knee joint replacement by other means H/O prostate biopsy Family History Mother , at age 73 Emphysema lung COPD (chronic obstructive pulmonary disease) Father , at age 59 Congestive heart failure (CHF) Diabetes Social History Smoking and tobacco/nicotine status: never used tobacco/nicotine Alcohol intake: current Alcohol intake frequency: holidays/special occasions only Substance/Drug Use: never Adopted: No Caregiver/support person: No Lives independently: No Household members: spouse Marital status: Current occupational status: employed Current gender identity: Male Vitals/I&O/Wt Last Vital Signs Temp 97.9 F 11/11/23 08:00 Pulse 107 H 11/11/23 08:00 Resp 18 11/11/23 08:00 BP 110/70 11/11/23 08:00 Pulse Ox 97 11/11/23 08:00 O2 Del Method Room Air 11/11/23 08:00 11/10/23 11/11/23 11/11/23 22:59 06:59 14:59 Intake Total 1240 / 1240 600 / 1840 600 / 600 Balance 1240 / 1240 600 / 1840 600 / 600 Weight last 48 hrs Weight 280 lb 3.2 oz Weight 270 lb Weight 270 lb Physical Exam 2 Narrative: General : Patient is well developed , no acute distress, oriented x3 Head : Normal cephalic, a-traumatic. Ears : Pinnae and external canal are normal. Hearing is normal. Eyes : PERRLA, Sclera and injection are normal. No conjunctival discharge. Nose : Mucous membranes are without erythema. Throat : buccal mucosa is normal, gums are without significant recession or hypertrophy. Lungs : Equal chest rise bilaterally, no use of accessory muscles, trachea is midline. Cor : Rate and rhythm are normal. Abdomen : Soft, ND, NT, no g/r/m Extremities : No edema, no cyanosis or clubbing, dorsalis pedis pulses are present bilaterally, non-tender to palpation of calves. Upper extremities are normal bilaterally. Back : non-tender to palpation, no CVA tenderness. Neuro : CN II - XII intact, Upper and lower extremities have equal and full strength Data 11/11/23 07:01 11/11/23 07:01 A&P Assessment and plan (1) Acute GI bleeding: (2) Acute blood loss anemia: Plan Patient received a bowel prep last night EGD Diagnostic colonoscopy The risks and benefits of the procedure, including bleeding, infection, intestinal perforation requiring surgery, missed lesion were explained to the patient. The patient is understanding of the risks and wishes to proceed. Attestations 2 Medical Necessity Statement*: Patient may need to stay overnight depending on the results of endoscopy Coding Level of Care Code 88526 Diagnoses Acute GI bleeding K92.2 Acute blood loss anemia D62
[2023-11-11 11:42] LABS: Glucose Point of Care 183 mg/dL (70-110)
[2023-11-11] MEDS: sodium chloride 0.9% 1,000 ML 30 ML IV (13:02)
--- NOTE | 2023-11-11 13:16 | P.ANESUD_ITS ---
Pre-Anesthetic Update Pre-Anesthetic Assessment: Date of Surgery/Procedure: 11/11/23 Proposed Procedure: Operation Date: 11/11/23 12:45 Proposed Procedures p EGD(Not Applicable) - Melo Marte, DO s Colonoscopy(Not Applicable) - Melo Mrate, DO Any changes to Pre-Anesthetic Assessment?: Yes Changes from Pre- Anesthetic Assessment: post procedure bleeding Last Intake: Intake Last Liquid Date 11/11/23 Last Liquid Time 06:32 Last Solid Date 11/10/23 Last Solid Time 11:00 Labs Last 48hrs: Short CBC 11/10/23 11/11/23 11/11/23 Range/Units 14:43 07:01 07:01 WBC 8.35 8.11 (3.29-11.43) 10^ 3/uL Hgb 13.80 10.10 L 10.10 L (11.27-16.99) g/ dL Hct 39.0 28.8 L (37-53) % MCV 93.5 (82-101) fl Plt Count 245 (157-399) 10^3/c mm Neut % (Auto) 62.3 % Neut # (Auto) 5.20 (1.8-7.7) 10^3/u L 11/11/23 Range/Units 07:01 WBC (3.29-11.43) 10^ 3/uL Hgb (11.27-16.99) g/ dL Hct 29.2 L (37-53) % MCV 95.4 (82-101) fl Plt Count 212 (157-399) 10^3/c mm Neut % (Auto) 60.1 % Neut # (Auto) 4.87 (1.8-7.7) 10^3/u L BMP 11/10/23 11/11/23 14:43 07:01 Sodium 136 137 Potassium 4.4 4.4 Chloride 100 102 Carbon Dioxide 23 25 BUN 18 14 Creatinine 0.9 0.7 Glucose 273 H 197 H Calcium 8.6 8.2 L Liver Function 11/10/23 Range/Units 14:43 Total Bilirubin 1.0 (0.15-1.2) mg/dL AST 25 (0-40) U/L ALT 38 (0-41) U/L Alkaline Phosphata se 74 (40-130) U/L Albumin 3.8 (3.5-5.2) g/dL Coags 11/10/23 14:43 PT 13.60 INR 1.01 APTT 22.3 L Vitals: Temperature 98.7 F 11/11/23 12:52 Temperature Source Temporal Artery S can 11/11/23 12:52 Pulse Rate 109 H 11/11/23 12:52 Respiratory Rate 16 11/11/23 12:52 Respiratory Effort Spontaneous, Non- Labored 11/11/23 08:00 Respiratory Depth Normal 11/11/23 08:00 Respiratory Patter n Normal 11/11/23 08:00 Blood Pressure 115/68 11/11/23 12:52 Blood Pressure Cathy n 83 11/11/23 12:52 Blood Pressure Pos ition Semi Fowlers 11/11/23 04:00 Pulse Oximetry 93 11/11/23 12:52 Oxygen Delivery Me thod Room Air 11/11/23 12:52 Sepsis Recent Feve r Within 48 Hours No 11/10/23 14:42 Exam: Pre-Anes Outpt Exam: alert, oriented x 3, clear to auscultation bilaterally and regular rate & rhythm Other Pertinent Information: Other Pertinent Information: Took ozempic on thursday Cardiac Studies: No Data to Display
--- NOTE | 2023-11-11 15:20 | ANE.PACU2 ---
Inpatient post-anesthesia follow up: Airway intact: Yes Vital signs: Temperature 97.7 F Pulse Rate [Orthos tatic 108 Standing] Pulse Rate [Orthos tatic 100 Sitting] Pulse Rate [Orthos tatic Lying] 97 Pulse Rate 104 Respiratory Rate 16 Blood Pressure [Or thostatic 87/59 Standing Right Arm ] Blood Pressure [Or thostatic 96/62 Sitting Right Arm] Blood Pressure [Or thostatic 104/75 Lying Right Arm] Blood Pressure 109/62 Pulse Oximetry 97 Oxygen Delivery Me thod Room Air Oxygen Flow Rate 4 Fraction of Inspir ed Oxygen Hydration adequate: Yes Nausea and vomiting: No Pain level: 1 Mental status: Baseline
[2023-11-11] MEDS: sodium chloride 0.9% 1,000 ML 125 ML IV ×2 (16:25→23:00)
[2023-11-11] MEDS: tranexamic acid 1,000 MG/100 ML PREMIX 600 MG IV (16:25)
[2023-11-11 16:47] LABS: Glucose Point of Care 218 mg/dL (70-110)
[2023-11-12] VITALS (8 sets, daily range): BP systolic 107–153; BP diastolic 68–89; PULSE 93–115; RESP 15–18; TEMP 36.7–37; O2SAT 92–100
[2023-11-12 05:35] LABS: Basophils # 0.1 10^3/uL (0.0-0.1); Basophils % 0.6 %; Eosinophils # 0.3 10^3/uL (0.0-0.8); Lymphocytes # 2.4 10^3/uL (0.8-4.8); Lymphocytes % 29.1 %; Mean Corpuscular HGB Conc 34.3 g/dL (30-55); Mean Corpuscular Hemoglobin 33.8 pg (27-33); Mean Corpuscular Volume 98.6 fl (82-101); Mean Platelet Volume 9.3 fL (7.4-10.4); Monocytes # 0.7 10^3/uL (0.2-0.9); Monocytes % 8.7 %; Neutrophils # 4.61 10^3/uL (1.8-7.7); Neutrophils % 56.3 %; Nucleated Red Blood Cells % 0 %; Platelet Count 162 10^3/cmm (157-399); Red Blood Count 2.07 10^6/uL (3.85-5.65); Red Cell Distribution Width 12.5 % (12.1-15.1); White Blood Count 8.19 10^3/uL (3.29-11.43)
[2023-11-12 05:58] LABS: Hematocrit 20.4 % (37-53)
[2023-11-12 06:00] LABS: Blood Urea Nitrogen 8 mg/dL (6-20); Calcium 7.3 mg/dL (8.5-10.5); Carbon Dioxide 25 mmol/L (22-29); Chloride 106 mmol/L (98-107); Creatinine Clr Calc Pharmacy 160.0033; Glomerular Filtration Rate 115.4 mL/min (90-130); Glucose 129 mg/dL (65-115); Magnesium 1.9 mg/dL (1.7-2.3); Osmolality Calculated 288 mOsm/kg (285-295); Sodium 139 mmol/L (136-145)
[2023-11-12] MEDS: sodium chloride 0.9% 1,000 ML 125 ML IV (08:26)
--- NOTE | 2023-11-12 11:19 | PC.NURSE ---
Blood started within less than 20 minutes of vegetable picker time. Did not save screen in time.
--- NOTE | 2023-11-12 14:52 | NM_ITS ---
WS: [id number] Nuclear medicine GI bleeding examination. HISTORY: Blood in stool for 4 days. Patient is injected with 25.6 mCi of Tc 99m Ultratag RBCs. Medial arterial imaging is obtained center ed over the abdomen and upper pelvis. Additional sequential imaging is obtained at 2 minutes per fram e for a total of 60 minutes. Delayed large [id number] imaging then obtained over the abdomen and p reynaldo. On the early arterial imaging there is normal blush like uptake noted within the liver and spleen and aorta. On the 2-minute sequential sequences continued normal distribution of radionuclide throughout the liver and spleen and kidneys. Urinary bladder is beginning to fill. Also increased uptake noted within the genitals is normal. NM/NM GI bleeding [id number] IMPRESSION: There is no focal uptake noted within the expected location of the GI tract to suggest active bleeding at this time.
--- NOTE | 2023-11-12 15:38 | P.DS_ITS ---
Discharge Providers Date of Admission: 11/10/23 16:32 Date of Discharge: November 12, 2023 Attending Provider at Admission: Melo Marte DO Attending Provider at Discharge: Melo Maret DO Primary Care Provider: Linda Prakash MD Diagnoses at Discharge Discharge Diagnosis (1) Acute GI bleeding: Status: Acute (2) Acute blood loss anemia: Status: Acute Reason for Visit Reason for Visit: passing blood during bowel movements Hospital Course Hospital Course This is a very pleasant 58-year-old gentleman who presented to the hospital with a GI bleed. He underwent EGD and colonoscopy and was found to have blood throughout his colon but no active source of bleeding. He was diagnosed with a diverticular bleed. A tagged red blood cell scan proved no further bleeding. His hemoglobin dropped down to 7 and he was transfused 1 unit of PRBCs. He had an appropriate response. He was discharged home in good condition without any further bleeding or abdominal pain. Physical Exam Narrative: General : Patient is well developed , no acute distress, oriented x3 Head : Normal cephalic, a-traumatic. Ears : Pinnae and external canal are normal. Hearing is normal. Eyes : PERRLA, Sclera and injection are normal. No conjunctival discharge. Nose : Mucous membranes are without erythema. Throat : buccal mucosa is normal, gums are without significant recession or hypertrophy. Lungs : Equal chest rise bilaterally, no use of accessory muscles, trachea is midline. Cor : Rate and rhythm are normal. Abdomen : Soft, ND, NT, no g/r/m Extremities : No edema, no cyanosis or clubbing, dorsalis pedis pulses are present bilaterally, non-tender to palpation of calves. Upper extremities are normal bilaterally. Back : non-tender to palpation, no CVA tenderness. Neuro : CN II - XII intact, Upper and lower extremities have equal and full strength Discharge Data Studies Completed and Pending Completed Studies During Hospitalization Category Date Time Status CT abdomen pelvis w con* [id number] Urgent Cat Scan 11/10/23 16:05 Completed NM GI bleeding [id number] Routine Nuc Med 11/12/23 14:52 Completed Pending at discharge Category Date Time Status BMP [Basic Metabolic Panel] AM LABS Lab 11/13/23 04:00 Ordered BMP [Basic Metabolic Panel] AM LABS Lab 11/14/23 04:00 Ordered CBC Auto Diff [Complete Blood Count w/Auto] AM LABS Lab 11/13/23 04:00 Ordered CBC Auto Diff [Complete Blood Count w/Auto] AM LABS Lab 11/14/23 04:00 Ordered HCT [Hematocrit] Timed Lab 11/12/23 15:30 Ordered Hemoglobin Timed Lab 11/12/23 15:30 Ordered Magnesium AM LABS Lab 11/13/23 04:00 Ordered Magnesium AM LABS Lab 11/14/23 04:00 Ordered Pathology: Surgical [PTH] Routine Pth 11/11/23 14:34 Received Radiology Impressions Abdomen/Pelvis CT 11/10/23 16:05 IMPRESSION: No acute findings.Non acute findings as described above. GI Bleed Scan Nuclear Medicine 11/12/23 14:52 IMPRESSION: There is no focal uptake noted within the expected location of the GI tract to suggest active bleeding at this time. Laboratory Results WBC 8.19 10^3/uL (3.29-11.43) 11/12/23 05:06 RBC 2.07 10^6/uL (3.85-5.65) L 11/12/23 05:06 Hgb 7.00 g/dL (11.27-16.99) L D 11/12/23 05:06 Hct 20.4 % (37-53) L* D 11/12/23 05:06 MCV 98.6 fl (82-101) 11/12/23 05:06 MCH 33.8 pg (27-33) H 11/12/23 05:06 MCHC 34.3 g/dL (30-55) 11/12/23 05:06 RDW 12.5 % (12.1-15.1) 11/12/23 05:06 Plt Count 162 10^3/cmm (157-399) 11/12/23 05:06 MPV 9.3 fL (7.4-10.4) 11/12/23 05:06 Neut % (Auto) 56.3 % 11/12/23 05:06 Lymph % (Auto) 29.1 % 11/12/23 05:06 [place] % (Auto) 8.7 % 11/12/23 05:06 Eos % (Auto) 4.0 % 11/12/23 05:06 Baso % (Auto) 0.6 % 11/12/23 05:06 Neut # (Auto) 4.61 10^3/uL (1.8-7.7) 11/12/23 05:06 Lymph # (Auto) 2.4 10^3/uL (0.8-4.8) 11/12/23 05:06 [place] # (Auto) 0.7 10^3/uL (0.2-0.9) 11/12/23 05:06 Eos # (Auto) 0.3 10^3/uL (0.0-0.8) 11/12/23 05:06 Baso # (Auto) 0.1 10^3/uL (0.0-0.1) 11/12/23 05:06 Nucleated RBC % (auto) 0 % 11/12/23 05:06 Nucleated RBCs # 0.0 /100WBC 11/12/23 05:06 PT 13.60 SECONDS (12.1-14.9) 11/10/23 14:43 INR 1.01 (0.8-1.2) 11/10/23 14:43 APTT 22.3 SECONDS (23.9-36.7) L 11/10/23 14:43 Sodium 139 mmol/L (136-145) 11/12/23 05:06 Potassium 4.0 mmol/L (3.5-5.1) 11/12/23 05:06 Chloride 106 mmol/L (98-107) 11/12/23 05:06 Carbon Dioxide 25 mmol/L (22-29) 11/12/23 05:06 Anion Gap 12.0 (5-19) 11/12/23 05:06 BUN 8 mg/dL (6-20) 11/12/23 05:06 Creatinine 0.7 mg/dL (0.7-1.2) 11/12/23 05:06 GFR Calculation 115.4 mL/min (90-130) 11/12/23 05:06 Glucose 129 mg/dL (65-115) H 11/12/23 05:06 POC Glucose 218 mg/dL (70-110) H 11/11/23 16:25 Calculated Osmolality 288 mOsm/kg (285-295) 11/12/23 05:06 Calcium 7.3 mg/dL (8.5-10.5) L 11/12/23 05:06 Magnesium 1.9 mg/dL (1.7-2.3) 11/12/23 05:06 Total Bilirubin 1.0 mg/dL (0.15-1.2) 11/10/23 14:43 AST 25 U/L (0-40) 11/10/23 14:43 ALT 38 U/L (0-41) 11/10/23 14:43 Alkaline Phosphatase 74 U/L (40-130) 11/10/23 14:43 Total Protein 6.2 g/dL (6.6-8.7) L 11/10/23 14:43 Albumin 3.8 g/dL (3.5-5.2) 11/10/23 14:43 Globulin 2.4 g/dL (1.3-4.6) 11/10/23 14:43 Lipase 63 U/L (13-60) H 11/10/23 14:43 Blood Type O Negative 11/10/23 14:43 Rho(D) Type Rh negative 11/10/23 14:43 Antibody Screen Negative 11/10/23 14:43 Crossmatch See Detail 11/10/23 14:43 Procedures Performed EGD and colonoscopy Vitals Last Vital Signs Temp 98.1 F 11/12/23 15:26 Pulse 106 H 11/12/23 15:26 Resp 15 11/12/23 15:26 BP 131/82 11/12/23 15:26 Pulse Ox 96 11/12/23 15:26 O2 Del Method Room Air 11/12/23 15:26 O2 Flow Rate 4 11/11/23 14:50 Discharge Plan Discharge Patient Disposition: Home Condition: Stable Prescriptions: Continued atorvastatin 20 mg tablet 20 mg PO BEDTIME cholecalciferol (vitamin D3) 250 mcg (10,000 unit) capsule 250 mcg PO DAILY duloxetine [Cymbalta] 30 mg capsule,delayed release(DR/EC) 30 mg PO DAILY tramadol 50 mg tablet 50 mg PO Q6H PRN (Reason: Pain) trazodone 100 mg tablet 100 mg PO BEDTIME levothyroxine 50 mcg capsule 50 mcg PO DAILY aspirin 81 mg tablet,chewable 81 mg PO DAILY Ozempic 0.25 mg or 0.5 mg(2 mg/1.5 mL) pen injector 0.5 mg SUBCUT Q7D carvedilol 12.5 mg tablet 12.5 mg PO BID Qty: 180 3RF testosterone cypionate 200 mg/mL oil 200 mg IM .EVERY OTHER WEEK Qty: 10 0RF Rx Instructions: Please supply syringes for administration Men's Multivitamin 400-20-300 mcg Tablet 1 tab PO DAILY acetaminophen 650 mg tablet extended release 1,300 mg PO Q8H PRN (Reason: Pain) hydrochlorothiazide 25 mg tablet 12.5 mg PO DAILY Rx Instructions: MUST have follow-up for further refills losartan 100 mg tablet 100 mg PO DAILY Rx Instructions: MUST make appointment and be seen for further refills. pantoprazole 40 mg tablet,delayed release (DR/EC) 40 mg PO BID 42 Days Qty: 84 1RF potassium 99 mg Tablet 99 mg PO DAILY Held clopidogrel [Plavix] 75 mg tablet 75 mg PO DAILY Qty: 90 3RF Hold Instructions: Resume on 11/13/23. Discharge Orders: Discharge Order (Routine); Ordered 11/12/23 Ordered By: Melo Marte Referrals: Linda Prakash MD [Primary Care Provider] - 11/18/23 2:30 pm Melo Marte DO [Physician] - (We have notified your physician's clinic of the need for a follow-up appointment to be scheduled. If you have not heard from them within the next 2 business days, please call them directly. ) Discharge Diet: Advance as tolerated Discharge Activity: Resume usual activity Patient Instructions: Gastrointestinal Bleeding (GEN), Upper Endoscopy (GEN), GI Discharge Instructions, Opioid Safety Activity Restrictions/Additional Instructions: Make sure to get your next colonoscopy in 1 year. Only precancerous polyps identified during original endoscopy. No other significant findings other than mild inflammation where your esophagus meets your stomach. Complete 12 weeks of pantoprazole 40 mg twice daily Discharge Attestations Time Spent in Discharge Care*: less than 30 min Quality Metrics Clinical Quality Measures [ No reported AMI, CVA or VTE this stay] Coding Level of Care Code Acute Code for Chg Fwd Diagnoses Acute GI bleeding K92.2 Acute blood loss anemia D62
[2023-11-12 15:58] LABS: Hematocrit 24.3 % (37-53)
== END 2023-11-12 16:33 | disposition home or self-care (01) ==
LOC: ER 17:06 → MEDSURG 20:23
PROVIDERS: Emergency Medicine; Admitting Provider Surgery; Emergency Provider Physician Assistant; PCP Internal Medicine; Visit Provider Surgery
PROC: 0DJ08ZZ Inspection of Upper Intestinal Tract, Via Natural or Artificial Opening Endoscopic (ICD-10-PCS; CPT 43235; principal; 2023-11-11 12:45)
PROC: 0DJD8ZZ Inspection of Lower Intestinal Tract, Via Natural or Artificial Opening Endoscopic (ICD-10-PCS; CPT 45378; 2023-11-11 12:45)
DX: K92.2 Gastrointestinal hemorrhage, unspecified (principal); D62 Acute posthemorrhagic anemia; K57.30 Diverticulosis of large intestine without perforation or abscess without bleeding; K64.4 Residual hemorrhoidal skin tags; K63.5 Polyp of colon; K20.90 Esophagitis, unspecified without bleeding; Z79.82 Long term (current) use of aspirin; E03.9 Hypothyroidism, unspecified; I10 Essential (primary) hypertension; F32.A Depression, unspecified; I25.10 Atherosclerotic heart disease of native coronary artery without angina pectoris; E78.5 Hyperlipidemia, unspecified; Z85.46 Personal history of malignant neoplasm of prostate; Z95.5 Presence of coronary angioplasty implant and graft
CPT/HCPCS: 36415; 36416; 36430; 43251; 45378; 74177; 78278; 80048; 80053; 82962; 83690; 83735; 85014; 85018; 85025; 85610; 85730; 86850; 86900; 86920; 88305; 99285; A9560; G0378; J0330; J2371; J2704; J3010; J7030; P9016; Q9967

== ENCOUNTER → 2024-01-04 08:18 | Outpatient (BNVA) | payer BC, SELFPAY | PROVIDERS: PCP Internal Medicine; Visit Provider Specialist | DX: M17.12 Unilateral primary osteoarthritis, left knee (principal); Z96.651 Presence of right artificial knee joint | CPT/HCPCS: 36415; 73560; 73565; 80053; 81001; 83036; 85025 ==

== ENCOUNTER 2024-01-11 13:53 | Outpatient (CLI) | payer BC, SELFPAY ==
--- NOTE | 2024-01-11 14:00 | CT_ITS ---
WS: [id number] CT LEFT knee, noncontrast HISTORY: planning for LEFT TOTAL KNEE TECHNIQUE: Protocol for DIAZ total knee replacement has been obtained. This includes axial imaging th rough the LEFT hip, LEFT knee and LEFT ankle. DLP: 966.05 mGy.cm COMPARISON: Radiograph 01/04/2024 Pelvis: No significant narrowing of the LEFT hip. No osseous destruction. Inguinal canals are patent bilaterally containing fat. LEFT knee: Moderate tricompartment osteoarthritis. Marginal osteophytes and narrowing of the joint sp aces. Small suprapatellar joint effusion. LEFT ankle, negative. Prior RIGHT knee arthroplasty. Small benign-appearing fluid collection RIGHT anterior pelvis also not ed on 11/10/2023. CT/CT knee [facility] [id number] IMPRESSION: CT imaging provided for [facility] robotic total knee replacement.
== END 2024-01-11 13:54 | disposition home or self-care (01) ==
LOC: RAD 13:53
PROVIDERS: PCP Internal Medicine; Visit Provider Specialist
DX: M17.12 Unilateral primary osteoarthritis, left knee (principal); M25.762 Osteophyte, left knee; Z96.651 Presence of right artificial knee joint
CPT/HCPCS: 73700

== ENCOUNTER 2024-01-21 10:03 | Observation (INO) | payer BC, SELFPAY ==
[2024-01-21] VITALS (13 sets, daily range): BP systolic 104–159; BP diastolic 70–97; PULSE 82–98; RESP 15–18; TEMP 36.3–37; O2SAT 93–95; BMI 37.0
[2024-01-21 07:04] LABS: Glucose Point of Care 203 mg/dL (70-110)
--- NOTE | 2024-01-21 07:06 | W.PM.OPSUD ---
Surgery/Procedure H&P Update DATE OF PROCEDURE: January 21, 2024 DATE H&P PERFORMED: 01/05/24 H&P UPDATE INFORMATION: I have reviewed H&P completed within last 30 days, I have examined patient prior to procedure, No changes to prior documentation and H&P is in [facility] EMR on date indicated PLANNED PROCEDURE: Operation Date: 01/21/24 08:05 Proposed Procedures p Matheus Robot Total Knee Arthroplasty(Left) - Adele Urrutia MD Related Problem List Diagnoses (1) Primary osteoarthritis of left knee:
--- NOTE | 2024-01-21 07:13 | ANES.PREANE2 ---
Pre-Anesthetic Assessment Height/Weight: Height 6 ft Weight 273 lb O2 Del Method Room Air 01/21/24 06:34 Preop Diagnosis: Arthritis Operation Date: 01/21/24 08:05 Proposed Procedures p Matheus Robot Total Knee Arthroplasty(Left) - Adele Urrutia MD Was Beta Chet taken within 24 hours: N/A Was Clonidine taken within 24 hours: N/A Last intake: Intake Last Liquid Date 01/20/24 Last Liquid Time 19:00 Last Solid Date 01/20/24 Last Solid Time 19:00 Social No alcohol and No tobacco Exam alert, oriented x 3, clear to auscultation bilaterally and regular rate & rhythm Airway Submandibular: within normal limits Cervical ROM: within normal limits Mallampati: Class III Dentition: full Anesthetic Plan ASA status: 3 Anesthesia: Regional (specify below) Other: No prior issues with anesthesia NPO since yesterday evening History of hypertension on hydrochlorothiazide, losartan and carvedilol. BB taken today Hypothyroidism on Synthroid GERD on Protonix DM2 On Ozempic, last taken 01/09/2024 History of prostate cancer CAD s/p stenting in 2019. Plavix last taken 01/08/2024 Labs 01/04/2024 reviewed and acceptable for procedure AM BS 203 Plan for spinal anesthetic with possible postop nerve block Medications/Allergies Home Medications Medication Instructions Recorded Confirmed Last Taken Type duloxetine 30 mg capsule,delayed 30 mg PO DAILY 04/26/19 01/18/24 01/17/24 History release (Cymbalta) tramadol 50 mg tablet 50 mg PO Q6H PRN Pain 04/26/19 01/18/24 01/17/24 History trazodone 100 mg tablet 100 mg PO BEDTIME 04/26/19 01/18/24 01/17/24 History aspirin 81 mg chewable tablet 81 mg PO DAILY 06/27/19 01/18/24 01/12/24 History levothyroxine 50 mcg capsule 50 mcg PO DAILY 06/27/19 01/18/24 01/17/24 History atorvastatin 20 mg tablet 20 mg PO BEDTIME 12/27/20 01/18/24 01/18/24 History cholecalciferol (vitamin D3) 250 250 mcg PO DAILY 12/27/20 01/18/24 01/18/24 History mcg (10,000 unit) capsule semaglutide 0.25 mg or 0.5 mg (2 0.5 mg SUBCUT Q7D weekly 06/27/21 01/18/24 01/09/24 History mg/1.5 mL) subcutaneous pen injector (Ozempic) cqjathtl-ygfpuwlo-wbtql acid 400 1 tab PO DAILY 01/23/22 01/18/24 01/17/24 History mcg-vit K 20 mcg-lycop 300 mcg tablet (Men's Multivitamin) clopidogrel 75 mg tablet (Plavix) 75 mg PO DAILY #90 tabs 03/24/22 01/18/24 01/12/24 Rx acetaminophen 650 mg 1,300 mg PO Q8H PRN Pain 06/15/22 01/18/24 01/18/24 History tablet,extended release carvedilol 12.5 mg tablet 12.5 mg PO BID #180 tabs 09/02/22 01/21/24 01/21/24 05:00 Rx testosterone cypionate 200 mg/mL 200 mg IM .EVERY OTHER WEEK #10 mL 09/08/22 01/18/24 01/04/24 Rx intramuscular oil hydrochlorothiazide 25 mg tablet 12.5 mg PO DAILY 11/02/23 01/18/24 01/18/24 History losartan 100 mg tablet 100 mg PO DAILY 11/02/23 01/18/24 01/12/24 History pantoprazole 40 mg tablet,delayed 40 mg PO BID 6 weeks #84 tabs 11/04/23 01/18/24 01/18/24 Rx release potassium 99 mg tablet 99 mg PO DAILY 11/11/23 01/18/24 01/17/24 History Allergies Allergy/AdvReac Type Severity Reaction Status Date / Time amoxicillin Allergy ALGY-Hives Verified 01/21/24 06:43 penicillin V [From Pen-Vee K] Allergy ALGY-Hives Verified 01/21/24 06:43 COUNTS INCLUDE 234 BEDS AT THE [facility] Anesthesia Medical History Hypothyroidism Hypertension Depression Type 2 diabetes mellitus CAD (coronary artery disease) Varicose 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 Rotator cuff arthropathy Pilonidal cyst Hyperlipidemia, unspecified Essential (primary) hypertension Male erectile dysfunction, unspecified Hypogonadism Prostate cancer Surgical History H/O heart artery stent History of total right knee replacement Date of Procedure: Jan 12, 2018 Diagnosis: Severe degenerative osteoarthritis right knee Procedure Done: Right total knee arthroplasty utilizing the following components: The Jan triathlon total knee system with a size 6 press fit posterior stabilized right femoral component and a size 6 cemented triathlon universal tibial baseplate with a 6 x 11 mm posterior stabilized tibial bearing insert and an asymmetric 32 mm x 10 mm patella S/P nasal surgery Knee joint replacement by other means H/O prostate biopsy Family History Mother , at age 73 Emphysema lung COPD (chronic obstructive pulmonary disease) Father , at age 59 Congestive heart failure (CHF) Diabetes Social History Smoking and tobacco/nicotine status: never used tobacco/nicotine Alcohol intake: current Alcohol intake frequency: holidays/special occasions only Substance/Drug Use: never Adopted: No Caregiver/support person: No Lives independently: No Household members: spouse Marital status: Current occupational status: employed Current gender identity: Male Data Anesthesia Cardiac Studies: No Data to Display
[2024-01-21] MEDS: acetaminophen 1,000 MG/100 ML PIGGYBACK 400 MG IV ×3 (07:20→23:37)
[2024-01-21] MEDS: sodium chloride 0.9% 1,000 ML 30 ML IV (07:20)
[2024-01-21] MEDS: gabapentin 300 mg Capsule PO ×2 (07:20)
[2024-01-21] MEDS: CELEcoxib 200 mg Capsule 400 MG PO (07:21)
--- NOTE | 2024-01-21 08:02 | PM.OP ---
Operative Report Date of procedure: January 21, 2024 Pre-op diagnosis: Primary osteoarthritis left knee Post-op diagnosis: Primary osteoarthritis left knee Post-op findings: Severe degenerative osteoarthritis of the left knee with slight flexion contracture Procedure done: Left total knee arthroplasty with Matheus guidance, hybrid components with cemented tibia and patella and press-fit femur Implants: Left total knee arthroplasty utilizing the following components: The [employer] [place] triathlon total knee system with a size 5 press fit posterior stabilized left femoral component and a size 6 cemented triathlon universal tibial baseplate with a 6 x 9 mm posterior stabilized tibial bearing insert and an asymmetric 35 mm x 10 mm cemented patella Specimens removed/disposition: Bone, disposed of Pathology: None Surgeon: Adele Urrutia MD Shipwright Apprentice: Jami Nunez Shipwright Apprentice: Whose services were required for positioning, retraction, exposure, closure, and assistance throughout the placement of the prosthetic components. Anesthesia: MAC (With spinal, ASA 3 with preoperative regional block) Estimated blood loss (mL): 250 Tourniquet time (min): 24 (At 250 mmHg) Tourniquet was elevated for cementing of the tibia and patella only. IV fluids (mL): 1,150 Urine output (mL): 0 Urine output: Patient has a urologic device which precludes placement of a Gonzalez Complications: None Findings: Severe degenerative osteoarthritis of the left knee with near complete loss of articular cartilage. Condition: stable Disposition: PACU (Then admit to the floor under observation status for postoperative rehabilitation and pain management) Brief History: This 58-year-old gentleman presented with complaints of left knee pain. He previously underwent right total knee arthroplasty, and he is very happy with this total knee. So satisfied, that he would like the same construct to total knee replacement on his opposite left knee. The patient had significant limitations in his activities of daily living. He underwent extended therapies including injection, anti-inflammatories, and an exercise program. After discussion, the patient wished to proceed with total knee arthroplasty. In reviewing his old records, this is a posterior stabilized total knee arthroplasty which is hybrid in configuration meaning a press-fit femur and cemented tibia and patella. We advised him that we would proceed in a similar fashion. Risks and complications were discussed. Consents were signed and questions were answered. Procedure: The patient was brought to the operating theater, and after undergoing spinal anesthetic, with MAC and with supplemental adductor canal block, ASA 3, the left lower extremity was prepped with Dura-Prep and draped in usual fashion following placement of a tourniquet high on the leg. The leg was then draped free.? A surgical pause was performed, and at the time of the surgical pause, we confirmed the site and side of surgery. Additionally, we confirmed the appropriate and timely administration of preoperative antibiotics, Ancef 3 g.? The availability of equipment was confirmed, and the patient's identity was verbalized as well. Following the surgical pause, an incision was made centering over the patella continuing proximally and distally as necessary to allow access to the knee joint. Dissection continued through skin and soft tissues using a scalpel. Hemostasis was obtained using electrocautery. The skin incision was followed by a median parapatellar arthrotomy. The leg was extended and the patella was able to be displaced laterally.? Appropriate arrays and markers were placed in appropriate position for use of the Matheus.? Preoperative planning had been accomplished and was discussed in detail with the Matheus patient registration representative.? Intraoperative mapping of the femur and tibia was accomplished after the arrays were placed.? Internal markers were also placed.? Once we had accomplished the Matheus mapping, we began the appropriate resections for placement of the prosthesis.? The plan was for a cruciate replacing left total knee arthroplasty. The patient had previously had a hybrid prosthesis with a cemented tibia and patella and press-fit femur. He liked this procedure and outcome of his knee so well, that he did not want to change plans. Once appropriate mapping had been accomplished retraction was established using manual retraction by surgical technicians and also the Matheus leg positioner and retractors.? The knee was evaluated.? There was significant osteoarthritic change as well as flexion contracture with varus deformity and a slight flexion contracture.? Appropriate bone resection was accomplished using the Matheus.? The femur was sized to a size 5.? Following tibial cuts, attention was directed to the femur.? Osteophytes were removed prior to this portion of the procedure.? We had performed a medial release at the beginning of the procedure to allow for placement of the array.? Proximal tibia was evaluated manually, and it was felt that appropriate size for the tibia was a size 6.? Tray was noted to fit nicely with good coverage. Attention was directed to the distal femur to resect the notch area for the posterior cruciate replacing prosthesis. The notch guide was placed in position. With the notch guide in appropriate position the notch was excised including resection of the anterior and posterior cruciate ligaments. This notch was to allow for the posterior stabilized femoral component. Trial reduction was accomplished with a size 5 femoral cruciate replacing component, a size 6 tibial tray and a size 6 PS tibial bearing insert which was 9 mm. The knee was placed through range of motion. There was good stability. There was full extension without lift off and the rotation of the tibia was marked. Alignment was felt to be appropriate as well.? Trial components were removed after the femur had been drilled.? Prior to removal of the tibial tray which had been pinned in position with appropriate rotation as determined by the Matheus plan, we drilled and broached the tibia. All trial components were removed, and the wound was irrigated.? Plans were made for insertion of the prosthetic components.? Prior to this, the patella was manually prepared.? After resection of the articular surface with the jigging system, it was measured and measured a 35 mm patella.? We resected approximately 11 mm of patella.? Patellar height was restored with the patellar component. All surfaces were copiously irrigated in preparation for cementing, this included a pin on power in the sclerotic areas of the medial tibial plateau and patella. The surfaces were then dried and a bone plug was placed into the distal femur. Cementing was accomplished with one unit of simplex cement with tobramycin and 1 unit of fast set. This gave us excellent working time. Cement was placed initially under the proximal tibia and the tibia was impacted into position. Excess cement was removed from around the tibial component. The tibial tray was placed during the cementing process so that we could place the knee in extended position while the cement was allowed to fully cure. The patella was also cemented at this point in time and held with a patellar clamp. Once again excess cement was cleared from around the patellar component as well. The knee was held in the extended position until cement was allowed to fully cure. During that time we irrigated the knee with 20 mL of Betadine and 500 mL of normal saline, and this was allowed to remain in the knee for 3-4 minutes. Once the cement had fully cured, all surfaces were reevaluated for further extruded cement and where this was found it was excised. Once the cement had fully cured and excess cement was cleared, the knee was then copiously irrigated and suctioned dry. Attention was then directed to closure. Closure was accomplished with 0 Vicryl in the fascial tissues, 2-0 Monocryl was used in the subcutaneous tissues, and the skin was closed with skin fish. A sterile dressing was then placed consisting of Prineo, OpSite, ABDs, sterile soft roll, and an Michael wrap. The patient was returned the Recovery Room in a satisfactory condition. X-rays were obtained there. The patient will be discharged to the floor for postoperative rehabilitation and pain management. There were no specimens and no complications. Related Problem List Diagnoses (1) Primary osteoarthritis of left knee:
[2024-01-21] MEDS: ceFAZolin 1,000 mg SDV 1000 MG IVP (08:05)
[2024-01-21] MEDS: ceFAZolin 2,000 mg SDV 2000 MG IVP ×3 (08:05→23:37)
[2024-01-21] MEDS: tranexamic acid 1,000 mg/10mL SDV 1000 MG IV (08:44)
[2024-01-21] MEDS: BUPivacaine 0.5% INJ 10 mL 20 ML INJECTION (09:10)
[2024-01-21] MEDS: BUPivacaine liposome 13.3 mg/mL SDV 20 mL 266 MG XX (09:10)
[2024-01-21] MEDS: vancomycin 1,000 MG SDV 1000 MG XX (09:14)
[2024-01-21] MEDS: ceFAZolin 1,000 mg SDV 3000 MG IRRIGATION (09:15)
[2024-01-21] MEDS: ceFAZolin 1,000 mg SDV 1000 MG IRRIGATION (09:18)
--- NOTE | 2024-01-21 12:00 | XR_ITS ---
WS: [id number] Exam: XR knee LT 1-2V [id number] Date/Time of Exam: 01/21/2024 12:00 PM Reason For Exam: Status post left total knee arthroplasty LEFT total knee arthroplasty is in place in excellent position. Postoperative changes in the adjacent soft tissues. XR/XR knee LT 1-2V [id number] IMPRESSION: 1. LEFT total knee arthroplasty in excellent position.
--- NOTE | 2024-01-21 12:18 | ANE.PACU2 ---
Inpatient post-anesthesia follow up: Airway intact: Yes Vital signs: Temperature 97.4 F Pulse Rate 86 Respiratory Rate 18 Blood Pressure 126/78 Pulse Oximetry 93 Oxygen Delivery Me thod Room Air Oxygen Flow Rate Fraction of Inspir ed Oxygen Hydration adequate: Yes Nausea and vomiting: No Pain level: 1 Mental status: Baseline
[2024-01-21] MEDS: CELEcoxib 200 mg Capsule PO (13:38)
[2024-01-21] MEDS: chlorhexidine gluconate 0.12% Btl 473 mL 30 ML MUCOUS MEM ×3 (13:39→20:14)
[2024-01-21] MEDS: TRAMadol 50 mg Tablet PO (14:48)
[2024-01-21] MEDS: iron polysaccharide complex 150 mg Capsule PO (17:18)
[2024-01-21] MEDS: oxyCODONE 5 mg IR Tab/Cap PO ×2 (17:18→21:17)
[2024-01-21] MEDS: pantoprazole DR 40 mg Tablet PO (17:18)
[2024-01-21] MEDS: sennosides-docusate Tablet 2 TAB PO (17:18)
[2024-01-21] MEDS: calcium carbonate 500 mg Chew Tablet 1000 MG PO (17:18)
[2024-01-21] MEDS: carvedilol 12.5 mg Tablet PO (17:19)
[2024-01-21] MEDS: tranexamic acid 1,000 MG/100 ML PREMIX 600 MG IV (17:19)
[2024-01-21] MEDS: mupirocin oint 22 gm 1 APPLIC NASAL (17:54)
[2024-01-21] MEDS: trazodone 100 mg Tablet PO (20:14)
[2024-01-22] VITALS (9 sets, daily range): BP systolic 143–166; BP diastolic 91–111; PULSE 90–102; RESP 16–18; TEMP 36.4–36.9; O2SAT 93–97
[2024-01-22] MEDS: oxyCODONE 5 mg IR Tab/Cap PO ×3 (01:15→11:25)
[2024-01-22] MEDS: CELEcoxib 200 mg Capsule PO ×2 (01:15→13:52)
[2024-01-22 04:57] LABS: Basophils % 0.6 %; Eosinophils # 0.3 10^3/uL (0.0-0.8); Eosinophils % 4.9 %; Hematocrit 37.7 % (37-53); Lymphocytes # 1.2 10^3/uL (0.8-4.8); Lymphocytes % 17.5 %; Mean Corpuscular HGB Conc 33.7 g/dL (30-55); Mean Corpuscular Hemoglobin 32.5 pg (27-33); Mean Corpuscular Volume 96.4 fl (82-101); Mean Platelet Volume 9.8 fL (7.4-10.4); Monocytes # 0.9 10^3/uL (0.2-0.9); Neutrophils % 63.7 %; Nucleated Red Blood Cells % 0 %; Platelet Count 173 10^3/cmm (157-399); Red Blood Count 3.91 10^6/uL (3.85-5.65); Red Cell Distribution Width 12.5 % (12.1-15.1); White Blood Count 6.91 10^3/uL (3.29-11.43)
[2024-01-22 05:27] LABS: Anion Gap 13.3 (5-19); Blood Urea Nitrogen 13 mg/dL (6-20); Calcium 8.2 mg/dL (8.5-10.5); Carbon Dioxide 25 mmol/L (22-29); Chloride 101 mmol/L (98-107); Creatinine Clr Calc Pharmacy 180.1733; Glomerular Filtration Rate 137.9 mL/min (90-130); Glucose 182 mg/dL (65-115); Osmolality Calculated 285 mOsm/kg (285-295); Potassium 4.3 mmol/L (3.5-5.1); Sodium 135 mmol/L (136-145)
[2024-01-22] MEDS: acetaminophen 1,000 MG/100 ML PIGGYBACK 400 MG IV (06:18)
[2024-01-22] MEDS: levothyroxine 50 mcg Tablet PO (08:46)
[2024-01-22] MEDS: calcium carbonate 500 mg Chew Tablet 1000 MG PO (08:46)
[2024-01-22] MEDS: iron polysaccharide complex 150 mg Capsule PO (08:46)
[2024-01-22] MEDS: TRAMadol 50 mg Tablet PO (08:46)
[2024-01-22] MEDS: ceFAZolin 2,000 mg SDV 2000 MG IVP (08:46)
[2024-01-22] MEDS: losartan 50 mg Tablet 100 MG PO (08:47)
[2024-01-22] MEDS: cholecalciferol (vitamin D3) 1,000 unit Tablet 1000 UNIT PO (08:47)
[2024-01-22] MEDS: duloxetine 30 mg Capsule PO (08:47)
[2024-01-22] MEDS: hydroCHLOROthiazide 25 mg Tablet 12.5 MG PO (08:47)
[2024-01-22] MEDS: sennosides-docusate Tablet 2 TAB PO (08:47)
[2024-01-22] MEDS: aspirin 325 mg EC Tablet PO (08:47)
[2024-01-22] MEDS: clopidogrel 75 mg Tablet PO (08:47)
[2024-01-22] MEDS: pantoprazole DR 40 mg Tablet PO (08:47)
[2024-01-22] MEDS: chlorhexidine gluconate 0.12% Btl 473 mL 30 ML MUCOUS MEM (08:48)
[2024-01-22] MEDS: multivitamin therapeutic Tablet 1 TAB PO (08:48)
[2024-01-22] MEDS: carvedilol 12.5 mg Tablet PO (08:48)
[2024-01-22] MEDS: mupirocin oint 22 gm 1 APPLIC NASAL (08:49)
--- NOTE | 2024-01-22 09:46 | PC.CHAP ---
Pastoral Care Encounter/Spiritual Assessment Type of Contact [] Declined commercial lines manager visit [] Patient/Family/Request visit [] Outpatient visit [] Follow-up visit [] Physician referral [] Code/Alert [x] Routine visit [] Staff referral [] Actively dying [] Patient sleeping [] Family support [] [] Out of room [] Palliative care [] [] Receiving care in room [] Pre-surgical visit [] Trauma [] Long length of stay [] ICU visit [] Other: Relational/Emotional Strength [x] Patient feels connected with others/family/visitors/staff [] Distress [] Loneliness/isolation [] Abandonment Spirituality of Patient [] Person of Silke [] Attends Mu-Ism of their Silke [x] Believes in Prayer [] Reads Bible or Episcopal materials [] There are Spiritual issues to be addressed Field Service Engineer Interventions [x] Prayer [x] Active listening [x] Non-anxious presence [] Spiritual/emotional support [] Crisis/trauma care [] Spiritual counseling [] Bereavement support [] Provided bereavement packet [] Provided Bible/devotional materials [] Provided toy/stuffed animal, coloring book to patient or family member [] Provided Communion [] Anointing/[place] [] Salvation [] Completed spiritual assessment [] Other: Impact on Illness or Injury [] Angry [] Fearful [] Anxious [] Often cries [] Exhaustion [] Unable to work [] Unable to attend sikhism [] Unable to walk/stand [] Unable to read [] Unable to drive [] Unable to eat/drink [] Unable to sleep [] Unable to be with family [] Patient intubated [] Other: Summary Time spent with patient 10 min
--- NOTE | 2024-01-22 13:04 | PC.OT ---
Pt seen for OT evaluation; pt is able to don and doff socks I and has no concerns or questions. No OT services necessary at this time.
--- NOTE | 2024-01-22 13:49 | P.DS_ITS ---
Discharge Providers Date of Admission: 01/21/24 10:03 Date of Discharge: January 22, 2024 Attending Provider at Admission: Adele Urrutia MD Attending Provider at Discharge: Adele Urrutia MD Primary Care Provider: Linda Prakash MD Diagnoses at Discharge Discharge Diagnosis (1) Primary osteoarthritis of left knee: Status: Acute (2) Status post total left knee replacement using cement: Status: Acute Permanent problem details: Left total knee arthroplasty utilizing the following components: The Bentley triathlon total knee system with a size 5 press fit posterior stabilized left femoral component and a size 6 cemented triathlon universal tibial baseplate with a 6 x 9 mm posterior stabilized tibial bearing insert and an asymmetric 35 mm x 10 mm cemented patella Reason for Visit Reason for Visit: M17.12 Brief History: This 58-year-old gentleman presented with complaints of left knee pain. He previously underwent right total knee arthroplasty, and he is very happy with this total knee. So satisfied, that he would like the same construct to total knee replacement on his opposite left knee. The patient had significant limitations in his activities of daily living. He underwent extended therapies including injection, anti-inflammatories, and an exercise program. After discussion, the patient wished to proceed with total knee arthroplasty. In [place] [facility] his old records, this is a posterior stabilized total knee arthroplasty which is hybrid in configuration meaning a press-fit femur and cemented tibia and patella. We advised him that we would proceed in a similar fashion. Risks and complications were discussed. Consents were signed and questions were answered. Hospital Course Hospital Course This 58-year-old gentleman was admitted for same-day surgery in the form of left total knee arthroplasty. This was tolerated well. On the first postoperative day, he was independent and felt safe for discharge to home. There is no ecchymosis and no evidence of DVT. The patient was comfortable performing home physical therapy. Therefore, he was discharged home to follow-up with me in the office. Physical Exam Const: COMMON NORMALS: no acute distress, average body habitus, patient oriented x3 and alert GENERAL APPEARANCE: cooperative and comfortable ORIENTATION/CONSCIOUSNESS: Yes awake HENMT: COMMON NORMALS: normocephalic and atraumatic HEAD & SCALP: normocephalic and atraumatic Eye: GENERAL EYE: appearance normal, both eyes and all related structures Chest: COMMONS NORMALS: normal inspection of the chest Resp: COMMON NORMALS: normal respiratory effort EFFORT & INSPECTION: Yes able to speak in complete sentences and Yes symmetric chest movement Extremity: LEFT LOWER EXTREMITY: Yes knee joint (No significant swelling or ecchymosis) Left knee: Yes palpation (minimal tenderness), Yes ROM (able to straight leg raise) and Yes neurovascular exam (intact distally) Neuro: COMMON NORMALS: patient oriented x3 SENSORIUM/ORIENTATION: Yes alert Psych: COMMON NORMALS: mental status grossly normal APPEARANCE: Yes grossly normal ATTITUDE: Yes calm and Yes engaged ATTENTION/CONCENTRATION: Yes attention grossly intact Skin: COMMON NORMALS: no rashes or lesions noted GENERAL SKIN EXAM: no rashes or lesions noted Discharge Data Studies Completed and Pending Completed Studies During Hospitalization Category Date Time Status XR knee LT 1-2V [id number] Routine Exams 01/21/24 12:00 Completed Radiology Impressions Knee X-Ray 01/21/24 12:00 IMPRESSION: 1. LEFT total knee arthroplasty in excellent position. Laboratory Results WBC 6.91 10^3/uL (3.29-11.43) 01/22/24 04:17 RBC 3.91 10^6/uL (3.85-5.65) 01/22/24 04:17 Hgb 12.70 g/dL (11.27-16.99) 01/22/24 04:17 Hct 37.7 % (37-53) 01/22/24 04:17 MCV 96.4 fl (82-101) 01/22/24 04:17 MCH 32.5 pg (27-33) 01/22/24 04:17 MCHC 33.7 g/dL (30-55) 01/22/24 04:17 RDW 12.5 % (12.1-15.1) 01/22/24 04:17 Plt Count 173 10^3/cmm (157-399) 01/22/24 04:17 MPV 9.8 fL (7.4-10.4) 01/22/24 04:17 Neut % (Auto) 63.7 % 01/22/24 04:17 Lymph % (Auto) 17.5 % 01/22/24 04:17 Stark % (Auto) 13.0 % 01/22/24 04:17 Eos % (Auto) 4.9 % 01/22/24 04:17 Baso % (Auto) 0.6 % 01/22/24 04:17 Neut # (Auto) 4.40 10^3/uL (1.8-7.7) 01/22/24 04:17 Lymph # (Auto) 1.2 10^3/uL (0.8-4.8) 01/22/24 04:17 Stark # (Auto) 0.9 10^3/uL (0.2-0.9) 01/22/24 04:17 Eos # (Auto) 0.3 10^3/uL (0.0-0.8) 01/22/24 04:17 Baso # (Auto) 0.0 10^3/uL (0.0-0.1) 01/22/24 04:17 Nucleated RBC % (auto) 0 % 01/22/24 04:17 Nucleated RBCs # 0.0 /100WBC 01/22/24 04:17 Sodium 135 mmol/L (136-145) L 01/22/24 04:17 Potassium 4.3 mmol/L (3.5-5.1) 01/22/24 04:17 Chloride 101 mmol/L (98-107) 01/22/24 04:17 Carbon Dioxide 25 mmol/L (22-29) 01/22/24 04:17 Anion Gap 13.3 (5-19) 01/22/24 04:17 BUN 13 mg/dL (6-20) 01/22/24 04:17 Creatinine 0.6 mg/dL (0.7-1.2) L 01/22/24 04:17 GFR Calculation 137.9 mL/min (90-130) H 01/22/24 04:17 Glucose 182 mg/dL (65-115) H 01/22/24 04:17 POC Glucose 203 mg/dL (70-110) H 01/21/24 06:59 Calculated Osmolality 285 mOsm/kg (285-295) 01/22/24 04:17 Calcium 8.2 mg/dL (8.5-10.5) L 01/22/24 04:17 Vitals Last Vital Signs Temp 97.6 F 01/22/24 11:06 Pulse 102 H 01/22/24 11:06 Resp 18 01/22/24 11:25 BP 166/111 01/22/24 11:06 Pulse Ox 97 01/22/24 11:06 O2 Del Method Room Air 01/22/24 11:06 Discharge Plan Discharge Patient Disposition: Home Condition: Stable Prescriptions: New acetaminophen 500 mg Tablet 1,000 mg PO Q8H 15 Days Qty: 90 0RF celecoxib 200 mg Capsule 200 mg PO 1XD 30 Days Qty: 30 0RF aspirin 325 mg Tablet,Delayed Release (Dr/Ec) 325 mg PO DAILY 30 Days Qty: 30 0RF oxycodone 5 mg Tablet 5 - 10 mg PO Q4H PRN (Reason: Moderate To Severe Pain) 7 Days Qty: 40 0RF Continued atorvastatin 20 mg tablet 20 mg PO BEDTIME cholecalciferol (vitamin D3) 250 mcg (10,000 unit) capsule 250 mcg PO DAILY duloxetine [Cymbalta] 30 mg capsule,delayed release(DR/EC) 30 mg PO DAILY tramadol 50 mg tablet 50 mg PO Q6H PRN (Reason: Pain) trazodone 100 mg tablet 100 mg PO BEDTIME levothyroxine 50 mcg capsule 50 mcg PO DAILY aspirin 81 mg tablet,chewable 81 mg PO DAILY Ozempic 0.25 mg or 0.5 mg(2 mg/1.5 mL) pen injector 0.5 mg SUBCUT Q7D clopidogrel [Plavix] 75 mg tablet 75 mg PO DAILY Qty: 90 3RF Hold Instructions: Resume on 11/06/23. carvedilol 12.5 mg tablet 12.5 mg PO BID Qty: 180 3RF testosterone cypionate 200 mg/mL oil 200 mg IM .EVERY OTHER WEEK Qty: 10 0RF Rx Instructions: Please supply syringes for administration Men's Multivitamin 400-20-300 mcg Tablet 1 tab PO DAILY acetaminophen 650 mg tablet extended release 1,300 mg PO Q8H PRN (Reason: Pain) hydrochlorothiazide 25 mg tablet 12.5 mg PO DAILY Rx Instructions: MUST have follow-up for further refills losartan 100 mg tablet 100 mg PO DAILY Rx Instructions: MUST make appointment and be seen for further refills. pantoprazole 40 mg tablet,delayed release (DR/EC) 40 mg PO BID 42 Days Qty: 84 1RF potassium 99 mg Tablet 99 mg PO DAILY Discharge Orders: Discharge Order (Routine); Ordered 01/22/24 Ordered By: Adele Urrutia Other Ambulatory Orders: DME: Walker (Order) Location: None Selected Ordered By: Adele Urrutia Physical Therapy Eval and Treat Outpatient (Order) Timeframe: 3 Days Facility: [facility] - Location: Physical Therapy Ordered By: Adele Urrutia Referrals: Physical Therapy - [facility] [Provider Group] Linda Prakash MD [Primary Care Provider] - 01/26/24 9:30 am Adele Urrutia MD [Physician] - 02/03/24 9:45 am Discharge Diet: Usual diet Discharge Activity: Increase activity as tolerated, Limit activity as instructed, Use walker/crutches as instructed and As per PT/OT instructions Patient Instructions: Acetaminophen (By mouth), Aspirin (By mouth), Celecoxib (By mouth), Oxycodone, Slow Release (By mouth), Acute Wound Care (DC), Total Knee Replacement (DC), Opioid Safety, Post Anesthesia Care Activity Restrictions/Additional Instructions: Ice and elevation to left knee. Weightbearing as tolerated. Range of motion, strengthening, and gait training per physical therapy. You may shower, but do not submerge your knee in water. Maintain clear plastic dressing until it comes off on its own. We will remove it in the office. If it lifts up and begins to leak, then you may remove it. Discharge Attestations Time Spent in Discharge Care*: greater than 30 min Specific Discharge Activities: educating patient, documenting/other paperwork and evaluating patient/reviewing data Quality Metrics Clinical Quality Measures [ No reported AMI, CVA or VTE this stay] Coding Level of Care Code Acute Code for Chg Fwd Diagnoses Primary osteoarthritis of left knee M17.12 Status post total left knee replacement using cement Z96.652
[2024-01-22] MEDS: acetaminophen 500 mg Tablet 1000 MG PO (13:50)
== END 2024-01-22 15:13 | disposition home or self-care (01) ==
LOC: MEDSURG 10:04
PROVIDERS: Admitting Provider Specialist; PCP Internal Medicine; Visit Provider Specialist
PROC: 8E0Y0CZ Robotic Assisted Procedure of Lower Extremity, Open Approach (ICD-10-PCS; CPT 27447; principal; 2024-01-21 08:05)
DX: M17.12 Unilateral primary osteoarthritis, left knee (principal); I10 Essential (primary) hypertension; E03.9 Hypothyroidism, unspecified; K21.9 Gastro-esophageal reflux disease without esophagitis; I25.10 Atherosclerotic heart disease of native coronary artery without angina pectoris; E11.9 Type 2 diabetes mellitus without complications; E78.5 Hyperlipidemia, unspecified; Z96.651 Presence of right artificial knee joint; Z79.899 Other long term (current) drug therapy; Z79.82 Long term (current) use of aspirin; Z79.890 Hormone replacement therapy; Z85.46 Personal history of malignant neoplasm of prostate; Z79.02 Long term (current) use of antithrombotics/antiplatelets; Z95.5 Presence of coronary angioplasty implant and graft
CPT/HCPCS: 27447; 36415; 36416; 73560; 80048; 82962; 85025; 97110; 97116; 97161; C1776; C9290; G0378; J0131; J0690; J2704; J3010; J3370; J3490; J7030

== ENCOUNTER → 2024-02-02 09:32 | Outpatient (BNVA) | payer BC, SELFPAY | PROVIDERS: PCP Internal Medicine; Visit Provider Nurse Practitioner | DX: Z96.652 Presence of left artificial knee joint (principal); M17.12 Unilateral primary osteoarthritis, left knee | CPT/HCPCS: 73560; 73565 ==

== ENCOUNTER 2024-02-16 09:29 | Outpatient (RCR) | payer BC, SELFPAY | END 2024-02-18 23:59 | disposition home or self-care (01) | LOC: SPT 09:29 | PROVIDERS: Visit Provider Nurse Practitioner | DX: Z47.1 Aftercare following joint replacement surgery (principal); Z96.652 Presence of left artificial knee joint | CPT/HCPCS: 97161 ==

== ENCOUNTER 2024-02-19 06:00 | Outpatient (RCR) | payer BC, SELFPAY | END 2024-03-19 23:59 | disposition home or self-care (01) | LOC: SPT 06:00 | PROVIDERS: Visit Provider Nurse Practitioner | DX: Z47.1 Aftercare following joint replacement surgery (principal); Z96.652 Presence of left artificial knee joint | CPT/HCPCS: 97110 ==

== ENCOUNTER → 2024-02-29 09:56 | Outpatient (BNVA) | payer BC, SELFPAY | PROVIDERS: PCP Internal Medicine; Visit Provider Nurse Practitioner | DX: Z96.652 Presence of left artificial knee joint (principal); M17.12 Unilateral primary osteoarthritis, left knee | CPT/HCPCS: 73560; 73565 ==

== ENCOUNTER 2024-03-20 06:00 | Outpatient (RCR) | payer BC, SELFPAY | END 2024-03-24 23:59 | disposition home or self-care (01) | LOC: SPT 06:00 | PROVIDERS: PCP Internal Medicine; Visit Provider Nurse Practitioner | DX: Z47.1 Aftercare following joint replacement surgery (principal); Z96.652 Presence of left artificial knee joint | CPT/HCPCS: 97110 ==

== ENCOUNTER → 2024-12-21 15:36 | Outpatient (BNVA) | payer BC, SELFPAY | PROVIDERS: PCP Internal Medicine; Visit Provider Podiatrist Foot & Ankle Surgery | DX: M25.571 Pain in right ankle and joints of right foot (principal) | CPT/HCPCS: 73610 ==

== ENCOUNTER 2025-01-11 07:00 | Outpatient (CLI) | payer BC, SELFPAY ==
--- NOTE | 2025-01-11 07:08 | MR_ITS ---
WS: [id number] MRI RIGHT ANKLE WITHOUT CONTRAST. COMPARISON: Radiograph 12/21/2024 Multiplanar, multisequence imaging is performed without contrast. No acute fractures are identified. There is a very small amount of marrow edema in the distal fibula. There is also small amount of marrow edema in the inferior talus surrounding the sinus Tarsi. Moderate narrowing of the of the subtalar joint. There is a small amount of fluid along the subtalar joint with fluid extending into the sinus Tarsi. There is a very small cyst in the subtalar joint measuring 4.4 mm. As visualized the interosseous talocalcaneal ligament and the cervical ligament are intact.. There is increased signal in the interosseous talocalcaneal ligament. There is some increased fluid within this sinus Tarsi. There is a small osteochondral defect along the inferior surface of the talus near the insertion of the interosseous talocalcaneal ligament. Peroneal retinaculum appears to be torn also. Distal Achilles tendon is intact. Rocker-bottom appearance of the plantar surface of the foot. There is a small amount of edema in the articulation between the cuboid and the fifth metatarsal. Additional mild edema with joint space narrowing between the intermediate cuneiform and the second metatarsal. Markedly abnormal appearance of the peroneal tendons. Peroneal tendons are abnormal signal with marked thickening. Loss of the normal morphology of both the peroneal brevis and longus beginning along the distal fibula. There is a fluid-filled defect consistent with a complete tear of the peroneal brevis tendon. Loss of the normal signal within the peroneal brevis and longus tendons near the peroneal tubercle. Distally there is a stump of the peroneal brevis tendon. There is marked intermediate signal with fluid in the tendon sheath. Tendons are retracted by at least 7 cm. Calcaneofibular ligament is identified. There is no full-thickness tear. There is a small amount of increased signal in the distal ligament at the insertion to the calcaneus. There is also small caliber proximal calcaneofibular ligament suggesting there may be a partial tear also. Flexor hallucis longus and the flexor digitorum longus are normal. Posterior tibial tendon is normal size. Anterior tibialis tendon is normal. There is a small amount of fluid in the distal tibiofibular articulation. Fluid in the anterior inferior tibiofibular ligament with tear at the insertion to the tibia. The posterior tibiofibular ligament is normal. Anterior talofibular ligament is intact. The posterior talofibular ligament appears normal but is surrounded by small amount of fluid. MR/MR ankle RT wo con* [id number] IMPRESSION: 1. High-grade tears involving the peroneal brevis and longus tendons. Loss of the normal morphology adjacent to the distal fibula. Marked thickening and hete rogeneous signal in the peroneal tendon sheath. Loss of continuity of both tend ons distal to the peroneal tubercle. Suspect high-grade to full-thickness tears with retraction of the tendons. Complete tear of the peroneal brevis. Near com plete tear peroneus longus. Tendons are retracted. 2. Partial tear of the calcaneofibular ligament. 3. Insertion site tear of the anterior inferior tibiofibular ligament at the t ibia. 4. Mild fluid in the interosseous ligament. 5. Small amount of marrow edema in the distal fibula. 6. Edema along the inferior talus surrounding the sinus Tarsi. 7. Narrowing of the subtalar joint with subtalar joint effusion. 8. Interosseous talocalcaneal ligament with increased signal. Small insertion site tear at the talus is not excluded. There is a small osteochondral lesion a t the insertion site to the talus. 9. Suspect ganglion within the sinus tarsi measuring 4.4 mm. 10. Rocker-bottom appearance plantar surface of the foot. Marrow edema in the tarsal metatarsal articulations.
== END 2025-01-11 07:01 | disposition home or self-care (01) ==
LOC: RAD 07:05
PROVIDERS: PCP Internal Medicine; Visit Provider Podiatrist Foot & Ankle Surgery
DX: S96.911A Strain of unspecified muscle and tendon at ankle and foot level, right foot, initial encounter (principal); X58.XXXA Exposure to other specified factors, initial encounter
CPT/HCPCS: 73721

== ENCOUNTER → 2025-02-06 15:23 | Outpatient (BNVA) | payer BC, SELFPAY | PROVIDERS: PCP Internal Medicine; Visit Provider Nurse Practitioner | DX: Z47.89 Encounter for other orthopedic aftercare (principal); Z96.652 Presence of left artificial knee joint; Z96.651 Presence of right artificial knee joint; M54.16 Radiculopathy, lumbar region | CPT/HCPCS: 73560; 73565 ==